=== PATIENT | male | born 1975 | race Caucasian/White ===

== ENCOUNTER 2021-04-05 18:42 | Inpatient (IN) | payer MEDICAID, SELFPAY ==
[~2021-04-05] VITALS: Ht 160 cm; Wt 110.7 kg
[2021-04-05 20:08] VITALS: BP 135/68
--- NOTE | 2021-04-05 20:14 | NUR ---
PT IS IN LOBBY.
--- NOTE | 2021-04-05 20:15 | NUR ---
PT STATES HE WILL BE IN HIS CAR.
[2021-04-05] MEDS ORDERED: ONDANSETRON 4 MG/2 ML VIAL IVP ONE (20:50)
[2021-04-05] MEDS ORDERED: NACL 0.9% 1,000 ML IV ONE (20:50)
[2021-04-05] MEDS ORDERED: MORPHINE SULFATE 4 MG/ML SYR IVP ONE ×2 (20:50→22:25)
--- NOTE | 2021-04-05 21:00 | NUR ---
RECEIVED IN BED 5 WITH C/O 12/16 ABD PAIN X YESTERDAY. REPORTS VOMITING. PT STATES HE TOOK TYLENOL AND ADVIL YESTERDAY WITH RELIEF AND THEN CAME BACK. REPORTS DARK STOOL. DENIES HX, RX AND ALLERGIES
--- NOTE | 2021-04-05 21:10 | NUR ---
IV ESTABLISHED. MEDICATED FOR PAIN, FLUID BOLUS BEGUN. PT REQUESTS WATER, NO WATER GIVEN AT THIS TIME
[2021-04-05 21:23] LABS: LYMPHOCYTES # (AUTO) 0.5 K/uL (2.0-11.5)
[2021-04-05 21:28] LABS: BASOPHILS % (AUTO) 0.1 % (0.0-2.0); HEMATOCRIT 48.2 % (36-52); HEMOGLOBIN 16.3 g/dL (12.0-18.0); MEAN CORPUSCULAR HEMOGLOBIN 32 pg (27-31); MEAN CORPUSCULAR HGB CONC 34 g/dL (33-37); MEAN CORPUSCULAR VOLUME 93.4 fL (80-94); MONOCYTES # (AUTO) 0.9 K/uL (0.8-1.0); MONOCYTES % (AUTO) 5.1 % (1.7-9.3); NEUTROPHILS # (AUTO) 16.5 K/uL (1.8-7.7); NEUTROPHILS % (AUTO) 91.8 % (42.2-75.2); PLATELET COUNT (AUTO) 240 K/uL (140-450); RED BLOOD CELL COUNT(AUTO) 5.16 MIL/uL (4.20-6.10); RED CELL DISTRIBUTION WIDTH 13.9 % (11.6-13.7)
[2021-04-05 21:47] LABS: ALBUMIN 4.1 g/dL (3.4-5.0); ANION GAP 16.6 (8-16); CARBON DIOXIDE 28.5 mmol/L (21-32); CREATININE 1.4 mg/dL (0.6-1.3); POTASSIUM 4.1 mmol/L (3.5-5.1); TOTAL BILIRUBIN 3.3 mg/dL (0.0-1.0)
[2021-04-05] MEDS ORDERED: MORPHINE SULFATE 4 MG/ML SYR ONE (22:26)
--- NOTE | 2021-04-05 22:30 | NUR ---
TO CT VIA [facility]
[2021-04-05] MEDS ORDERED: PIPERACILLIN/TAZOBACTAM 4.5 GM in DEXTROSE 5% 100 ML IV ONE (22:40)
[2021-04-05] MEDS ORDERED: PIPERACILLIN/TAZOBACTAM 4.5 GM VIAL IV ONE (22:45)
--- NOTE | 2021-04-05 22:45 | NUR ---
RETURNED FROM CT.
[2021-04-05 23:33] LABS: APPEARANCE,URINE CLEAR (CLEAR); BILIRUBIN,URINE 2+ (NEGATIVE); BLOOD, URINE NEGATIVE (NEGATIVE); COLOR,URINE AMBER (YELLOW); LEUKOCYTE ESTERASE ,URINE NEGATIVE (NEGATIVE); NITRITE, URINE NEGATIVE (NEGATIVE); UGLUCOSE NEGATIVE (NEGATIVE)
[2021-04-05 23:58] LABS: HYALINE CASTS, URINE 0-2 /LPF (None Seen); RBC,URINE 0-5 /HPF (0-5); WBC,URINE 0-5 /HPF (0-5)
[2021-04-06] MEDS ORDERED: MORPHINE SULFATE 4 MG/ML SYR IVP ONE ×3 (00:10→03:25)
--- NOTE | 2021-04-06 00:15 | NUR ---
C/O PAIN RETURNING, MEDICATED ORDERED. UA OBTAINED AND SENT TO LAB
[2021-04-06] MEDS ORDERED: NACL 0.9% 1,000 ML IV ONE ×3 (00:45→03:20)
--- NOTE | 2021-04-06 01:00 | NUR ---
RESTING QUIETLY. RESPIRATIONS ARE REGULAR AND UNLABORED.
--- NOTE | 2021-04-06 01:55 | NUR ---
AWAKE. C/O PAIN MEDICATED ORDERED
--- NOTE | 2021-04-06 02:58 | NUR ---
AWAKE, AMBULATED TO BR. C/O 12/16 PAIN. "I WANT SOMETHING TO MAKE ME BURP"
[2021-04-06] MEDS ORDERED: diphenhydrAMINE 50 MG/ML VIAL IVP ONE (03:25)
[2021-04-06] MEDS ORDERED: HYDROmorphone PFS 2 MG/ML SYR IVP ONE (06:45)
--- NOTE | 2021-04-06 07:30 | NUR ---
REPORT RECEIVED FROM KARLIE SAHNI FOR CONTINUITY OF PATIENT CARE.
[2021-04-06] MEDS ORDERED: ONDANSETRON 4 MG/2 ML VIAL IVP PRN (08:05)
[2021-04-06] MEDS ORDERED: POTASSIUM CHLORIDE 10 MEQ TABER PO PRN (08:05)
[2021-04-06] MEDS ORDERED: NACL 0.9% 1,000 ML IV SCH (08:05)
[2021-04-06] MEDS ORDERED: ACETAMINOPHEN 325 MG TAB PO PRN (08:05)
[2021-04-06] MEDS ORDERED: MAG SULF 2000 MG/WATER PREMIX 50 ML IV PRN (08:05)
[2021-04-06] MEDS ORDERED: KCL 20 MEQ/WATER INJ PREMIX 200 ML IV PRN (08:05)
[2021-04-06] MEDS ORDERED: MAGNESIUM OXIDE 400 MG TAB PO PRN (08:05)
--- NOTE | 2021-04-06 08:25 | NUR ---
RITESH LAB SPECIMEN COLLECTED AND TAKEN TO LAB.
--- NOTE | 2021-04-06 08:30 | NUR ---
PATIENT REQUESTING WATER, REVIEWED NPO STATUS WITH PATIENT. WATER NOT GIVEN AT THIS TIME
[2021-04-06] MEDS: DOCUSATE SODIUM 100 MG GELCAP PO SCH (09:00)
--- NOTE | 2021-04-06 09:40 | NUR ---
ULTRASOUND AT PATIENT BEDSIDE
--- NOTE | 2021-04-06 11:32 | NUR ---
PATIENT AMBULATED TO RESTROOM WITH STEADY GAIT
--- NOTE | 2021-04-06 11:35 | NUR ---
PATIENT AMBULATED BACK TO ROOM, RECONNECTED TO BEDSIDE MONITOR
[2021-04-06] MEDS ORDERED: HYDROmorphone 1 MG/ML AMP IVP PRN (13:10)
[2021-04-06] MEDS ORDERED: PIPERACILLIN/TAZOBACTAM 3.375 GM VIAL IV ONE ×2 (13:23→18:10)
[2021-04-06 13:26] LABS: BASOPHILS % (AUTO) 0.2 % (0.0-2.0); HEMATOCRIT 45.4 % (36-52); HEMOGLOBIN 15.2 g/dL (12.0-18.0); LYMPHOCYTES # (AUTO) 0.5 K/uL (2.0-11.5); LYMPHOCYTES % (AUTO) 3.7 % (20.5-51.1); MEAN CORPUSCULAR HEMOGLOBIN 32 pg (27-31); MEAN CORPUSCULAR HGB CONC 33 g/dL (33-37); MEAN CORPUSCULAR VOLUME 95.3 fL (80-94); MONOCYTES # (AUTO) 0.7 K/uL (0.8-1.0); NEUTROPHILS # (AUTO) 12.6 K/uL (1.8-7.7); NEUTROPHILS % (AUTO) 91.1 % (42.2-75.2); PLATELET COUNT (AUTO) 223 K/uL (140-450); RED BLOOD CELL COUNT(AUTO) 4.77 MIL/uL (4.20-6.10); RED CELL DISTRIBUTION WIDTH 14.6 % (11.6-13.7); WHITE BLOOD COUNT (AUTO) 13.8 K/uL (4.8-10.8)
[2021-04-06] MEDS: PIPERACILLIN/TAZOBACTAM 3.375 GM in DEXTROSE 5% 50 ML IV SCH ×2 (13:35→19:00)
--- NOTE | 2021-04-06 13:55 | NUR ---
DR GUZMÁN EVALUATING PATIENT AT BEDSIDE
--- NOTE | 2021-04-06 14:05 | NUR ---
NUCLEAR MED AT PATIENT BEDSIDE
--- NOTE | 2021-04-06 15:37 | NUR ---
PATIENT COMPLETED HALF OF VASC FLOW PROCEDURE. PAIN LEVEL REASSESSED, MEDICATED PER ORDERS
--- NOTE | 2021-04-06 18:00 | NUR ---
PATIENT REQUESTED WATER, REVIEWED CLEAR LIQUID DIET. PROVIDED WATER AT BEDSIDE.
[2021-04-06] MEDS: MORPHINE SULFATE 4 MG/ML SYR IVP PRN (19:00)
--- NOTE | 2021-04-06 19:00 | NUR ---
PATIENT REPORTS INCREASE IN PAIN, REVIEWED MEDICATION ORDERS AND MEDICATED PER PROTOCOL.
--- NOTE | 2021-04-06 19:28 | NUR ---
Pt report given to KARLIE SAHNI. Transfer of care at this time.
--- NOTE | 2021-04-06 20:00 | NUR ---
PT HAD BEEN PLACED IN GOWN BUT REMOVED AND PUT CLOTHES BACK ON. REFUSED TO WEAR GOWN
--- NOTE | 2021-04-06 20:05 | NUR ---
REPORT CALLED TO KARLIE SMALL
[2021-04-06 20:10] VITALS: BP 145/85
--- NOTE | 2021-04-06 20:10 | NUR ---
RECEIVED PT FROM ER/ MONSE , AMBULATES TO PAIN , BEARBLE PAIN ABDL . PAIN HE SAID - JUST GOT PAIN MED. PRIOR TO FLOOR , FALL RISK - CALL LIGHT WITHIN REACH - REMINDS PT TO HIT THE CALL LIGHT IF HE NEEDED TO GO TO REST ROOM . IV SITE INTACT AND PATENT . ADMISSION ASSESSMENT - DONE , ON CLEAR LIQ. DIET OREDERED . WILL CONT. TO MONITOR . Addendum: 04/07/21 at 0306 by Zohra Johnson RN ANGELINA -RICHARD
--- NOTE | 2021-04-06 20:15 | NUR ---
TO 112B VIA GURNEY, ATTACHED TO GEOPHYSICAL COMPUTER ACCOMPANIED BY RN AND ERT
--- NOTE | 2021-04-06 22:34 | NUR ---
PER PHARMACIST JAYNE PIGGYBACK IS COMPATIBLE FOR PRIME IVF LR .
[2021-04-06] MEDS: LACTATED RINGERS 1,000 ML IV SCH ×2 (22:46→23:00)
[2021-04-07] VITALS: BP 142/88
--- NOTE | 2021-04-07 00:17 | NUR ---
C/O PAIN - BP 142/89 - WILL GIVE PAIN MED .
[2021-04-07] MEDS: MORPHINE SULFATE 4 MG/ML SYR IVP PRN (00:18)
[2021-04-07] MEDS ORDERED: PIPERACILLIN/TAZOBACTAM 3.375 GM VIAL IV ONE ×2 (01:14→06:46)
[2021-04-07] MEDS: PIPERACILLIN/TAZOBACTAM 3.375 GM in DEXTROSE 5% 50 ML IV SCH ×5 (01:20→23:57)
[2021-04-07 04:00] VITALS: BP 142/90
--- NOTE | 2021-04-07 04:00 | NUR ---
ROUNDS , PER PT HE HAS SMALL FREQ URINATION . - WILL CONT. TO MONITOR .
--- NOTE | 2021-04-07 04:30 | NUR ---
RE ASSESS THE URINATION OF THE PT - PER PT HE HAS URGE -WAIT TILL HE VOIDED BEFORE I REFER HIM TO THE MD . WILL RE ASSESS . REMINDS PT TO VOID TO URINAL .
--- NOTE | 2021-04-07 05:00 | NUR ---
ROUNDS , PT IS IN THE REST REST - ASKING TO HIM IF HE IS OH - PT REPLIES I'M OK . WILL CONT. TO MONITOR .
--- NOTE | 2021-04-07 06:30 | NUR ---
FOLLOW UP PT URINATION HE SAID HE URINATED FREELY . MARKEL Beck
[2021-04-07 06:53] LABS: HEMATOCRIT 41.3 % (36-52); HEMOGLOBIN 13.8 g/dL (12.0-18.0); MEAN CORPUSCULAR HEMOGLOBIN 32 pg (27-31); MEAN CORPUSCULAR HGB CONC 33 g/dL (33-37); MEAN CORPUSCULAR VOLUME 96.2 fL (80-94); PLATELET COUNT (AUTO) 178 K/uL (140-450); RED CELL DISTRIBUTION WIDTH 14.4 % (11.6-13.7); WHITE BLOOD COUNT (AUTO) 17.6 K/uL (4.8-10.8)
[2021-04-07 07:27] LABS: BASOPHILS % (MANUAL) 0 % (0-2); EOSINOPHILS % (MANUAL) 0 % (0-4); LYMPHOCYTES % (MANUAL) 10 % (20-46); MONOCYTES % (MANUAL) 5 % (5-12)
--- NOTE | 2021-04-07 07:27 | NUR ---
PATIENT HAS BEEN SCREENED AND CATEGORIZED MODERATE NUTRITION RISK. PATIENT WILL BE SEEN WITHIN 3-5 DAYS OF ADMISSION. 04/09/21-04/11/21 SHERMAN LLOYD MS, RDN
--- NOTE | 2021-04-07 07:27 | NUR ---
ENDORSED - PT -STABLE .
--- NOTE | 2021-04-07 07:27 | NUR ---
PT 'S BRO CONTACT # [phone] Addendum: 04/07/21 at 0837 by Zohra Johnson RN MARBELLA COLLINS
[2021-04-07 07:28] LABS: ALBUMIN 2.8 g/dL (3.4-5.0); BILIRUBIN,DIRECT 1.3 mg/dL (0.0-0.3)
[2021-04-07 07:29] LABS: TOTAL BILIRUBIN 4.6 mg/dL (0.0-1.0)
--- NOTE | 2021-04-07 07:30 | NUR ---
RECEIVED PT AAOX4. NO SOB NOTED. NO C/O PAIN AT THIS TIME. IV TO LAC PULLED OUT ACCIDENTALLY BY PT. WILL RESTART A NEW LINE SOON. CHEST DIMINISHED AIR ENTRY TO THE BASES. ABDOMEN SOFT, LARGE, BOWEL SOUNDS PRESENT. PT ON CLEAR LIQUIDS. NO EDEMA NOTED. INSTRUCTED PT TO CALL FOR ASSISTANCE, CALL LIGHT WITHIN REACH, VERBALIZED UNDERSTANDING.
[2021-04-07 07:50] LABS: ALBUMIN 2.8 g/dL (3.4-5.0); ANION GAP 20.5 (8-16); CARBON DIOXIDE 19.5 mmol/L (21-32); MAGNESIUM 1.8 mg/dL (1.8-2.4); TOTAL BILIRUBIN 4.6 mg/dL (0.0-1.0)
[2021-04-07 07:54] LABS: CREATININE 5.1 mg/dL (0.6-1.3)
[2021-04-07] MEDS ORDERED: INSULIN REGULAR, HUMAN 100 UNIT/ML VIAL IVP SCH (08:10)
[2021-04-07] MEDS ORDERED: SODIUM ZIRCONIUM CYCLOSILICATE 10 GM POWD.PACK PO SCH (08:10)
[2021-04-07 08:45] VITALS: BP 162/99
[2021-04-07] MEDS: SENNA 8.6 MG TAB PO SCH ×2 (09:00→21:00)
[2021-04-07] MEDS: DOCUSATE SODIUM 100 MG GELCAP PO SCH (09:00)
[2021-04-07] MEDS: LACTATED RINGERS 1,000 ML IV SCH (09:05)
[2021-04-07] MEDS: HYDROmorphone 1 MG/ML AMP IVP PRN ×3 (09:28→22:20)
--- NOTE | 2021-04-07 11:00 | NUR ---
URINE SPECIMEN COLLECTED AND SENT TO LAB FOR UDS ORDERED.
--- NOTE | 2021-04-07 11:33 | NUR ---
(04/07/21) RD INITIAL ASSESSMENT COMPLETED PLEASE REFER TO NUTRITION ASSESSMENT UNDER CARE ACTIVITY FOR ESTIMATED NUTRITIONAL NEEDS. RD RECOMMENDATIONS: 1. CONTINUE CLEAR LIQUID DIET MEDICALLY APPROPRIATE. 2. IF/WHEN MEDICALLY APPROPRIATE, CONSIDER ADVANCING TO FULL LIQUID DIET AND THEN TO CARDIAC DIET TOLERATED. 3. CONSULT RDN PRN. 4. RD WILL F/U 3-5 DAYS; MODERATE RISK. SHERMAN LLOYD MS, RDN
[2021-04-07 12:00] VITALS: BP 140/99
[2021-04-07 12:45] LABS: BARBITURATE, URINE NEGATIVE ng/ml (NEG <=200); BENZODIAZEPINE, URINE NEGATIVE ng/mL (NEG <=200); CANNABINOID, URINE NEGATIVE ng/mL (NEG <=50); COCAINE, URINE POSITIVE ng/mL (NEG <=300); PHENCYCLIDINE SCREEN,URINE NEGATIVE ng/mL (NEG <=25)
[2021-04-07 12:46] LABS: OPIATE, URINE POSITIVE ng/mL (NEG <=2000)
[2021-04-07] MEDS: NACL 0.9% 1,000 ML IV SCH ×2 (13:04→19:01)
[2021-04-07 14:40] LABS: ANION GAP 19.5 (8-16); CARBON DIOXIDE 20.4 mmol/L (21-32); POTASSIUM 5.9 mmol/L (3.5-5.1)
[2021-04-07] MEDS ORDERED: DEXTROSE 50% 50 ML SYR IVP PRN (14:50)
[2021-04-07] MEDS ORDERED: INSULIN LISPRO 100 UNITS/ML VIAL SUBQ SCH ×2 (15:05→21:55)
[2021-04-07] MEDS ORDERED: INSULIN LANTUS 100 UNITS/ML 10 ML VIAL SUBQ SCH ×2 (15:05→21:55)
[2021-04-07 16:00] VITALS: BP 153/94
[2021-04-07 18:31] LABS: ANION GAP 21.4 (8-16); CARBON DIOXIDE 19.9 mmol/L (21-32); POTASSIUM 5.3 mmol/L (3.5-5.1)
[2021-04-07 18:36] LABS: CREATININE 6.5 mg/dL (0.6-1.3)
[2021-04-07] MEDS ORDERED: INSULIN LISPRO 100 UNITS/ML VIAL SUBQ ONE (18:45)
[2021-04-07] MEDS ORDERED: FUROSEMIDE 20 MG/2 ML VIAL IVP ONE (18:45)
--- NOTE | 2021-04-07 18:48 | NUR ---
REPORTED TO DR. TAYLOR REGARDING PT'S LATEST BMP RESULTS (CRITICAL), REPORTED PT'S URINE LOW URINE OUT PUT FOR 12 HOURS (300 MLS, DARK MAHAD URINE), BLADDER SCAN DONE, POST VOID RESIDUAL OF ABOVE 118 MLS. NEW ORDERS GIVEN. ANOTHER BMP ORDERED FOR [address] TAYLOR TO REPORT THE BMP RESULTS AT 2100 HRS TO NEPHROLOGY (DR. MELANY AU AND WILL GO FROM THERE.
--- NOTE | 2021-04-07 18:55 | NUR ---
ANOTHER URINE OUT PUT OF 250 DARK MAHAD URINE NOTED.
[2021-04-07] MEDS: BLOOD GLUCOSE MONITORING 1 DEV DEV FS SCH ×2 (18:58→21:07)
--- NOTE | 2021-04-07 19:30 | NUR ---
PT AWAKE, NO SOB NOTED. NO C/O PAIN AT THIS TIME. ENDORSED TO TIME SIGNAL WIRER NURSE FOR CONTINUITY OF CARE.
--- NOTE | 2021-04-07 19:40 | NUR ---
RECEIVED REPORT AT BEDSIDE.PT IS AWAKE,ALERT AND ORIENTED.FAMILY AT BEDSIDE.RESP.UNLABORED.IVF INFUSING WELL.HR IS ST.CALL LIGHT IN REACH.WILL CONTINUE MONITORING.VS STABLE.
[2021-04-07 20:00] VITALS: BP 167/93
[2021-04-07 21:46] LABS: ANION GAP 20.2 (8-16); CARBON DIOXIDE 20.2 mmol/L (21-32); POTASSIUM 4.4 mmol/L (3.5-5.1)
[2021-04-07 22:03] LABS: CREATININE 6.8 mg/dL (0.6-1.3)
[2021-04-08] VITALS: BP 155/90
--- NOTE | 2021-04-08 | NUR ---
AT 2100.PS=908.CALLED COVERED HIM W/10UNITS LANTUS AND 10 UNITS HUMALOG PER MD ORDER X1 TIME.ALSO RESULTS OF BMP :DZYOUAI=982,BUN=87,CREATININE=6.8 AND K=4.[address]MINA AU,NO NEW ORDER GIVEN.HR IS ST.NO C/O PAIN NOW.ASKED FOR FAN.FAN IS IN HIS ROOM.WILL CONT.MONITORING.
[2021-04-08] MEDS: HYDROmorphone 1 MG/ML AMP IVP PRN ×6 (01:52→22:06)
--- NOTE | 2021-04-08 02:44 | NUR ---
HR=42.CHECKED ON PT.SLEEPING W/O S/S OF ANY DISTRESS.VS STABLE.KY=60,RR=20,MG=278/80,T=98.8
[2021-04-08 04:00] VITALS: BP 160/90
[2021-04-08] MEDS: NACL 0.9% 1,000 ML IV SCH ×3 (05:43→18:44)
[2021-04-08] MEDS: PIPERACILLIN/TAZOBACTAM 3.375 GM in DEXTROSE 5% 50 ML IV SCH ×2 (05:43→12:04)
[2021-04-08] MEDS: BLOOD GLUCOSE MONITORING 1 DEV DEV FS SCH ×4 (07:04→21:04)
[2021-04-08] MEDS: INSULIN LISPRO SLIDING SCALE 100 UNITS/ML VIAL SUBQ PRN ×5 (07:07→20:59)
[2021-04-08 07:30] LABS: ALBUMIN 2.4 g/dL (3.4-5.0); ANION GAP 19.6 (8-16); CARBON DIOXIDE 21.6 mmol/L (21-32); MAGNESIUM 2.1 mg/dL (1.8-2.4); POTASSIUM 5.2 mmol/L (3.5-5.1); TOTAL BILIRUBIN 5.9 mg/dL (0.0-1.0)
[2021-04-08 07:34] LABS: BASOPHILS % (AUTO) 0.1 % (0.0-2.0); HEMATOCRIT 31.8 % (36-52); HEMOGLOBIN 10.9 g/dL (12.0-18.0); LYMPHOCYTES # (AUTO) 0.9 K/uL (2.0-11.5); LYMPHOCYTES % (AUTO) 5.6 % (20.5-51.1); MEAN CORPUSCULAR HEMOGLOBIN 33 pg (27-31); MEAN CORPUSCULAR HGB CONC 34 g/dL (33-37); MEAN CORPUSCULAR VOLUME 94.6 fL (80-94); MONOCYTES # (AUTO) 1.3 K/uL (0.8-1.0); MONOCYTES % (AUTO) 7.8 % (1.7-9.3); NEUTROPHILS # (AUTO) 14.7 K/uL (1.8-7.7); NEUTROPHILS % (AUTO) 86.5 % (42.2-75.2); PLATELET COUNT (AUTO) 151 K/uL (140-450); RED BLOOD CELL COUNT(AUTO) 3.36 MIL/uL (4.20-6.10); RED CELL DISTRIBUTION WIDTH 14.1 % (11.6-13.7)
[2021-04-08 07:37] LABS: CREATININE 7.4 mg/dL (0.6-1.3)
--- NOTE | 2021-04-08 07:54 | NUR ---
SLEPT WELL LAST NIGHT.IVF IS IN PROGRESS.REPORT GIVEN TO JARRED ZIEGLER.
[2021-04-08 08:00] VITALS: BP 153/98
--- NOTE | 2021-04-08 08:00 | NUR ---
RECEIVED REPORT FROM PAVING STONE INSTALLER FOR CONTINUITY OF CARE. PATIENT ALERT AWAKE ORIENTED X4, NOT IN ANY DISTRESS NOTED. WITH IVF ON GOING ON THE RIGHT AC GAUGE 20, NO SIGN OF INFILTRATION. ON MONITOR SHOWS SR /ST. LAB RESULTS CALLED TO DR. AU FOR CRITICAL RESULT. NO NEW ORDER MADE. NEEDS ATTENDED. WILL CONTINUE TO MONITOR.
[2021-04-08] MEDS: SENNA 8.6 MG TAB PO SCH ×2 (08:40→21:00)
[2021-04-08] MEDS: DOCUSATE SODIUM 100 MG GELCAP PO SCH (08:41)
[2021-04-08 12:00] VITALS: BP 153/89
--- NOTE | 2021-04-08 12:20 | NUR ---
SEEN BY AND PLAN TO DO ERCP, EXPALINED TO THE PATIENT AND HE SAID HE WILL TALK TO THE FIRST. KEEP NPO FOR NOW. CONSENT PRINTED. WILL CONTINUE TO MONITOR.
--- NOTE | 2021-04-08 13:20 | NUR ---
PATIENT OFF FLOOE, WENT FOR ERCP. WILL CONTINUE TO MONITOR.
[2021-04-08] MEDS ORDERED: MIDAZOLAM 2 MG/2 ML VIAL ONE (13:39)
[2021-04-08] MEDS ORDERED: KETAMINE 500 MG/5 ML VIAL ONE (13:57)
[2021-04-08] MEDS ORDERED: LABETALOL 100 MG/20 ML VIAL ONE (14:21)
[2021-04-08] MEDS ORDERED: PROPOFOL 200 MG/20 ML VIAL IV ONE ×2 (14:21)
[2021-04-08] MEDS ORDERED: SODIUM ZIRCONIUM CYCLOSILICATE 10 GM POWD.PACK PO SCH (15:30)
--- NOTE | 2021-04-08 15:40 | NUR ---
PATIENT BACK FROM ERCP, NOT IN DISTRESS NOTED.
[2021-04-08 16:00] VITALS: BP 160/98
[2021-04-08 16:20] LABS: ANION GAP 19.3 (8-16); CARBON DIOXIDE 21.6 mmol/L (21-32); POTASSIUM 4.9 mmol/L (3.5-5.1)
[2021-04-08 16:28] LABS: CREATININE 7.8 mg/dL (0.6-1.3)
--- NOTE | 2021-04-08 17:00 | NUR ---
SEEN BY DR. KHADRA VEGAS, WITH ORDERS MADE.
[2021-04-08] MEDS ORDERED: CALCIUM GLUCONATE 10% 1,000 MG in NACL 0.9% 50 ML IV SCH (18:00)
[2021-04-08] MEDS: LABETALOL 100 MG/20 ML VIAL IV SCH ×2 (18:59→23:52)
--- NOTE | 2021-04-08 19:20 | NUR ---
REPORT GIVEN TO KARLIE SANCHEZ FOR CONTINUITY OF CARE. IN STABLE CONDITION.
--- NOTE | 2021-04-08 19:30 | NUR ---
RECEIVED PT SLEEPING, EASILY AROUSABLE, AAOX4, ABLE TO MAKE NEED KNOWN, DENIES ANY PAIN, NO SIGNS OF SOB, CALCIUM GLUCONATE IVPB INFUSING WELL, PLAN OF CARE DISCUSSED, MAINTAINED ON NPO EXCEPT MEDS, CALL LIGHT WITHIN REACH.
[2021-04-08 20:00] VITALS: BP 164/87
[2021-04-08] MEDS: metroNIDAZOLE 500 MG/NS PREMIX 100 ML IV SCH (20:53)
[2021-04-08] MEDS: INSULIN LANTUS 100 UNITS/ML 10 ML VIAL SUBQ SCH (20:58)
--- NOTE | 2021-04-08 21:10 | NUR ---
BLOOD SUGAR CHECKED WITH 200 RESULT, DUE MEDS ADMINISTERED, PT AMBULATED TO BR WITH STEADY GAIT, BM WITH LOOSE STOOL, VOIDED FREELY USING URINAL WITH 300ML STRAW COLORED URINE, ALL NEEDS ATTENDED.
[2021-04-09] VITALS: BP 158/91
[2021-04-09] MEDS: NACL 0.9% 1,000 ML IV SCH ×3 (01:15→21:15)
[2021-04-09] MEDS: HYDROmorphone 1 MG/ML AMP IVP PRN ×7 (02:32→23:40)
[2021-04-09 04:00] VITALS: BP 139/93
[2021-04-09] MEDS: metroNIDAZOLE 500 MG/NS PREMIX 100 ML IV SCH ×3 (04:29→20:42)
[2021-04-09] MEDS: LABETALOL 100 MG/20 ML VIAL IV SCH ×3 (05:56→18:57)
[2021-04-09] MEDS: INSULIN LISPRO SLIDING SCALE 100 UNITS/ML VIAL SUBQ PRN ×4 (06:23→20:47)
[2021-04-09] MEDS: BLOOD GLUCOSE MONITORING 1 DEV DEV FS SCH ×4 (06:55→20:47)
--- NOTE | 2021-04-09 07:20 | NUR ---
RECEIVED REPORT FROM PM SHIFT KARLIE SANCHEZ FOR CONTINUITY OF CARE. PT. STABLE ON ROOM AIR. BREATHINGS EVEN AND UNLABORED. NO RESP. DISTRESS NOTED. IVF RUNNING ORDERED. ALL SAFETY MEASURES IN PLACE. CALL LIGHT WITHIN REACH. WILL CONTINUE TO MONITOR THE PT.
--- NOTE | 2021-04-09 07:20 | NUR ---
PT AWAKE, NO SIGNS OF DISTRESS, REPORT GIVEN TO KARLIE GORDON FOR CONTINUITY OF CARE.
[2021-04-09 07:35] LABS: BASOPHILS % (AUTO) 0.1 % (0.0-2.0); EOSINOPHILS % (AUTO) 0.1 % (0.0-4.0); HEMATOCRIT 27.8 % (36-52); HEMOGLOBIN 9.5 g/dL (12.0-18.0); LYMPHOCYTES # (AUTO) 0.7 K/uL (2.0-11.5); LYMPHOCYTES % (AUTO) 4.3 % (20.5-51.1); MEAN CORPUSCULAR HEMOGLOBIN 32 pg (27-31); MEAN CORPUSCULAR HGB CONC 34 g/dL (33-37); MEAN CORPUSCULAR VOLUME 94.4 fL (80-94); MONOCYTES % (AUTO) 6.2 % (1.7-9.3); NEUTROPHILS # (AUTO) 14.6 K/uL (1.8-7.7); NEUTROPHILS % (AUTO) 89.3 % (42.2-75.2); PLATELET COUNT (AUTO) 165 K/uL (140-450); RED BLOOD CELL COUNT(AUTO) 2.95 MIL/uL (4.20-6.10); WHITE BLOOD COUNT (AUTO) 16.4 K/uL (4.8-10.8)
[2021-04-09 08:00] VITALS: BP 164/87
[2021-04-09 08:06] LABS: CARBON DIOXIDE 18.6 mmol/L (21-32); MAGNESIUM 2.3 mg/dL (1.8-2.4); POTASSIUM 4.6 mmol/L (3.5-5.1); TOTAL BILIRUBIN 2.5 mg/dL (0.0-1.0)
[2021-04-09 08:34] LABS: CREATININE 8.7 mg/dL (0.6-1.3)
--- NOTE | 2021-04-09 08:34 | NUR ---
RECEIVED CALL FROM LAB FOR THIS PT. HAS CRITICAL LAB RESULT BUN 115,AUTO AIR CONDITIONING INSTALLER.LEVEL 8.7.NOTIFIED MD PCP AND DATA CONTROL ASSISTANT.WILL FOLLOW UP WITH THE ORDERES.
[2021-04-09] MEDS: DOCUSATE SODIUM 100 MG GELCAP PO SCH (09:00)
[2021-04-09] MEDS: SENNA 8.6 MG TAB PO SCH ×2 (09:00→20:42)
--- NOTE | 2021-04-09 09:09 | NUR ---
PT. C/O ABDOMINAL PAIN 11/16. MEDICATED WITH DILUDID PAIN MED. WILL CONTINUE TO MONITOR THE PT.
--- NOTE | 2021-04-09 09:40 | NUR ---
REASSESSED FOR EFFECTIVENESS OF PAIN MED. PT. DENIES PAIN AT THIS TIME. ALERT,AWAKE, STABLE ON ROOM AIR. SAFETY MEASURES IN PLACE. WILL CONTINUE TO MONITOR THE PT.
[2021-04-09 12:00] VITALS: BP 153/94
--- NOTE | 2021-04-09 12:38 | NUR ---
ANSWERED CALL LIGHT. PT. C/O PAIN IN ABDOMEN. 11/16. MEDICATED WITH PAIN MED DILAUDID PRN ORDER.WILL CONTINUE TO MONITOR THE PT.
--- NOTE | 2021-04-09 13:30 | NUR ---
PT. RESTING IN THE BED. NO C/O PAIN AT THIS TIME. NO ANY ACUTE DISTRESS NOTED. SAFETY MEASURES IN PLACE. WILL CONTINUE TO MONITOR THE PT.
[2021-04-09] MEDS ORDERED: chlorproMAZINE 25 MG TAB PO PRN (15:35)
[2021-04-09 16:00] VITALS: BP 158/98
--- NOTE | 2021-04-09 17:08 | NUR ---
ADMINISTERED PAIN MEDICATION DILAUDID FOR C/O PAIN ABDOMEN. 11/16. PT. RESTING IN THE BED WIOTH NO SIGNS OF DISTRESS NOTED. SAFETY MEASURES IN PLACE. CALL LIGHT WITHIN REACH. FAMILY AT BEDSIDE. WILL CONTINUER VIJAY MONITOR THE PT.
--- NOTE | 2021-04-09 18:32 | NUR ---
PT. COMFORTABLY SLEEPING IN THE BED . NO S/S OF ACUTE DISTRESS NOTED. NO S/S OF PAIN NOTED AT THIS TIME. ALL SAFETY MEASURES IN PLACE. WILL CONTINUE TO MONITOR THE PT.
--- NOTE | 2021-04-09 19:24 | NUR ---
REPORT GIVEN TO PM SHIFT RN FOR CONTINUITY OF CARE. PT. STABLE. COMFORTABLY RESTING IN THE BED WITH NO DISTRESS.
--- NOTE | 2021-04-09 19:25 | NUR ---
RECEIVED REPORT FROM AM SHIFT NURSE FOR CONTINUITY OF CARE.PT IS AWAKE,ALERT AND ORIENTED.FAMILY AT BEDSIDE.BREATHING UNLABORED.AFEBRILE,IVF INFUSING WELL.CALL LIGHT IN REACH.WILL CONTINUE MONITORING.
[2021-04-09 20:00] VITALS: BP 121/72
--- NOTE | 2021-04-09 20:40 | NUR ---
PT COMPLAINED OF ABDOMINAL PAIN 11/16. PRN PAIN MEDICATION GIVEN.WILL CONTINUE TO MONITOR.
[2021-04-09] MEDS: INSULIN LANTUS 100 UNITS/ML 10 ML VIAL SUBQ SCH (20:46)
--- NOTE | 2021-04-09 21:00 | NUR ---
SCHEDULED MEDICATION GIVEN. PT TOLERATED WELL. ALL PRECAUTIONS IN PLACE. WILL CONTINUE TO MONITOR.
--- NOTE | 2021-04-09 23:45 | NUR ---
PT COMPLAINED OF ABDOMINAL PAIN 10/16. PRN PAIN MEDICATION GIVEN.WILL CONTINUE TO MONITOR.
--- NOTE | 2021-04-10 01:30 | NUR ---
PT ASLEEP. VISIBLE CHEST RISE AND FALL NOTED. NO DISTRESS NOTED.CONTINUE TO MONITOR.
[2021-04-10] MEDS: HYDROmorphone 1 MG/ML AMP IVP PRN ×5 (02:40→20:05)
[2021-04-10 04:00] VITALS: BP 153/92
[2021-04-10] MEDS: HYDROcodone/APAP 5/325 MG 1 TAB TAB PO PRN ×3 (04:48→22:37)
[2021-04-10] MEDS: metroNIDAZOLE 500 MG/NS PREMIX 100 ML IV SCH ×3 (04:49→20:52)
--- NOTE | 2021-04-10 04:50 | NUR ---
PT COMPLAINED OF 6/10 ABDOMINAL PAIN. PRN PAIN MED GIVEN. WILL CONTINUE TO MONITOR.
[2021-04-10] MEDS: LABETALOL 100 MG/20 ML VIAL IV SCH ×4 (06:00→18:00)
[2021-04-10] MEDS: NACL 0.9% 1,000 ML IV SCH ×2 (06:40→18:04)
[2021-04-10] MEDS: INSULIN LISPRO SLIDING SCALE 100 UNITS/ML VIAL SUBQ PRN ×3 (06:41→23:46)
[2021-04-10] MEDS: BLOOD GLUCOSE MONITORING 1 DEV DEV FS SCH ×4 (06:41→21:24)
--- NOTE | 2021-04-10 06:57 | NUR ---
PT STABLE. NO ACUTE EVENTS THROUGHOUT THE NIGHT. NO S/SX OF DISTRESS AT THIS TIME. ALL NEEDS MET. CALL LIGHT WITHIN REACH. WILL ENDORSE TO AM SHIFT NURSE.
--- NOTE | 2021-04-10 07:28 | NUR ---
REPORT RECEIVED FROM PM SHIFT RN FOR CONTINUITY OF CARE. PT. RESTING. BREATHING EVEN AND UNLABORED. ALL SAFETY MEASURES IN PLACE.WILL CONTINUE TO MONITOR THE PT.
--- NOTE | 2021-04-10 07:30 | NUR ---
ENDORSED PT TO AM SHIFT NURSE FOR CONTINUITY OF CARE. PT IS STABLE.
[2021-04-10 08:00] VITALS: BP 169/98
[2021-04-10 08:21] LABS: HEMATOCRIT 27.6 % (36-52); HEMOGLOBIN 9.4 g/dL (12.0-18.0); MEAN CORPUSCULAR HEMOGLOBIN 32 pg (27-31); MEAN CORPUSCULAR HGB CONC 34 g/dL (33-37); MEAN CORPUSCULAR VOLUME 94.2 fL (80-94); PLATELET COUNT (AUTO) 202 K/uL (140-450); RED BLOOD CELL COUNT(AUTO) 2.93 MIL/uL (4.20-6.10); RED CELL DISTRIBUTION WIDTH 14.7 % (11.6-13.7); WHITE BLOOD COUNT (AUTO) 17.1 K/uL (4.8-10.8)
[2021-04-10 08:24] LABS: CARBON DIOXIDE 16.6 mmol/L (21-32); MAGNESIUM 2.5 mg/dL (1.8-2.4); POTASSIUM 3.6 mmol/L (3.5-5.1); TOTAL BILIRUBIN 1.5 mg/dL (0.0-1.0)
--- NOTE | 2021-04-10 08:30 | NUR ---
NOTIFIED MD DR. ANDERS RE. PT'S CRITICAL LAB VALUE BUN 124, BILLING TYPIST. 9.0. VIA TEXT. MESSAGE.
--- NOTE | 2021-04-10 08:40 | NUR ---
RECEIVED CALL FROM DR. TOVAR . THAT HE WILL DO BEDSIDE PROCEDURE HD CATHETER PLACEMENT.
[2021-04-10] MEDS: SENNA 8.6 MG TAB PO SCH ×2 (09:00→21:24)
[2021-04-10] MEDS: DOCUSATE SODIUM 100 MG GELCAP PO SCH (09:00)
--- NOTE | 2021-04-10 09:05 | NUR ---
DR. TOVAR IS HERE. HE EXPLAINED VIJAY THE PT. RE. PROCEDURE. PT. AGRRED TO DO PROCEDURE HD CATH PLACEMENT..
--- NOTE | 2021-04-10 09:11 | NUR ---
OBTAINED CONSENT FROM MD AND PT,
--- NOTE | 2021-04-10 09:30 | NUR ---
HD CATHETER PLACEMENT DONE AT BEDSIDE. PERFORMED BY DR. TOVAR. PT. TOLERATED WEL. NO BLEEDING NOTED ATT INSERTION SITE. PT. ALERT,STABLE. NO ACUTE DISTRESS NOTED. SAFETY MEASURES IN PLACED. WILL CONTINUE TO MONITOR THE PT.
--- NOTE | 2021-04-10 11:37 | NUR ---
PT. C/O ABDOMINAL PAIN . 11/16. MEDICATED WITH PAIN MED. PRN ORDER. WILL REASSESS FOR PAIN. PT. ALERT AND ORIENTED. NO DISTRESS OBSERVED. CALL LIGHT WITHIN REACH. WILL CONTINUE TO MONITOR THE PT.
[2021-04-10 12:00] VITALS: BP 154/88
--- NOTE | 2021-04-10 15:31 | NUR ---
PT. C/O OF ABDOMINAL PAIN.09/15. MEDICATED WITH PAIN MED. WILL CONTINUE TO MONITOR THE PT.CURRENTLY PT. HAVING HD
[2021-04-10 16:00] VITALS: BP 154/88
--- NOTE | 2021-04-10 17:03 | NUR ---
PT. C/O PAIN IN ABDOMEN. REQUESTED PAIN PILL. MEDICATED WITH NORCO PAIN MED. WILL CONTINUE TO MONITOR THE PT.
[2021-04-10 17:49] LABS: EOSINOPHILS % (MANUAL) 1 % (0-4); LYMPHOCYTES % (MANUAL) 7 % (20-46); MONOCYTES % (MANUAL) 8 % (5-12)
--- NOTE | 2021-04-10 17:50 | NUR ---
HD FINISHED DILIP. 0ML OUTPUT PER HD NURSE. PT. ALERT AWAKE . STABLE. ON ROOM AIR NO NOTED DISTRESS. SAFETY MEASURES IN PLACE. WILL CONTINUE TO MONITOR THE PT.
--- NOTE | 2021-04-10 19:09 | NUR ---
PT. COMFORTABLY RESTING IN THE BED WITH NO ACUTE DISTRESS NOTED. SAFETY MEASURES IN PLACE. CALL LIGHT WITHIN REACH. PT. STABLE . WILL ENDORSE TO PM SHIFT RN.
--- NOTE | 2021-04-10 19:35 | NUR ---
RECEIVED PATIENT REPORT FROM AM SHIFT NURSE FOR CONTINUITY OF CARE. PATIENT IN BED AWAKE, ALERT AND VERBALLY RESPONSIVE. ABLE TO VERBALIZED NEEDS. FAMILY MEMBER ON BEDSIDE. NOT IN DISTRESS. ALL SAFETY MEASURES IN PLACE. CALL LIGHT WITHIN REACH. WILL CONTINUE WITH CURRENT PLAN OF CARE.
--- NOTE | 2021-04-10 20:08 | NUR ---
PATIENT COMPLAINT OF PAIN. PAIN 11/16. RN EDUARDO ADMINISTERED DILAUDID. TOLERATED WELL. NO ASE NOTED. CALL LIGHT WITHIN REACH. WILL CONTINUE TO MONITOR.
[2021-04-10] MEDS: INSULIN LANTUS 100 UNITS/ML 10 ML VIAL SUBQ SCH (20:46)
--- NOTE | 2021-04-10 21:25 | NUR ---
ADMINISTERED ALL DUE MEDICATIONS PER MD ORDERED. TOLERATED WELL. NO ASE NOTED. ALL SAFETY MEASURES IN PLACE. CALL LIGHT WITHIN REACH. WILL CONTINUE TO MONITOR.
--- NOTE | 2021-04-10 22:40 | NUR ---
ANSWERED PATIENT CALL LIGHT. PATIENT COMPLAINT OF PAIN. ADMINISTERED NORCO. TOLERATED WELL. NO ASE NOTED. CALL LIGHT WITHIN REACH. WILL CONTINUE TO MONITOR.
--- NOTE | 2021-04-10 23:10 | NUR ---
CHECKED ON PATIENT. PATIENT ASLEEP WITH VISIBLE CHEST RISING AND FALLING. NOT IN DISTRESS. NO SOB NOTED. ALL SAFETY MEASURES IN PLACE. CALL LIGHT WITHIN REACH. WILL CONTINUE TO MONITOR.
[2021-04-11] MEDS: HYDROmorphone 1 MG/ML AMP IVP PRN ×4 (01:03→15:41)
--- NOTE | 2021-04-11 01:05 | NUR ---
ANSWERED PATIENT CALL LIGHT. PATIENT COMPLAINT OF PAIN 11/16. RN EDUARDO ADMINISTERED PAIN MEDICATION (DILAUDID) PER MD ORDER. TOLERATED WELL. NO ASE NOTED. PLACED CALL LIGHT WITHIN REACH. WILL CONTINUE TO MONITOR.
[2021-04-11] MEDS: HYDROcodone/APAP 5/325 MG 1 TAB TAB PO PRN ×2 (03:10→20:11)
--- NOTE | 2021-04-11 03:12 | NUR ---
CHECKED ON PATIENT. PATIENT REQUESTING FOR WARM BLANKET AND NEW GOWN. ITEMS PROVIDED. PATIENT ALSO REQUESTED FOR PAIN MEDICATION. PAIN 7/. ADMINISTERED PAIN MEDICATION (NORCO) PER MD ORDER. TOLERATED WELL. NO ASE NOTED. CALL LIGHT WITHIN REACH. WILL CONTINUE TO MONITOR.
[2021-04-11] MEDS: NACL 0.9% 1,000 ML IV SCH ×2 (03:15→14:04)
[2021-04-11 04:00] VITALS: BP 139/67
[2021-04-11] MEDS: metroNIDAZOLE 500 MG/NS PREMIX 100 ML IV SCH ×2 (04:57→14:04)
[2021-04-11] MEDS: LABETALOL 100 MG/20 ML VIAL IV SCH ×4 (06:00→18:00)
[2021-04-11] MEDS: BLOOD GLUCOSE MONITORING 1 DEV DEV FS SCH ×4 (06:48→21:00)
[2021-04-11] MEDS: INSULIN LISPRO SLIDING SCALE 100 UNITS/ML VIAL SUBQ PRN ×2 (06:50→17:09)
--- NOTE | 2021-04-11 07:13 | NUR ---
Patient's Plan of Care was discussed and reviewed with BIAS CUTTING MACHINE OPERATOR: TORSTEN KILGORE
--- NOTE | 2021-04-11 07:25 | NUR ---
ENDORSED PATIENT REPORT TO AM SHIFT NURSE FOR CONTINUITY OF CARE. PATIENT IS STABLE.
--- NOTE | 2021-04-11 07:25 | NUR ---
OPENING NOTES: PATIENT IS RESTING IN BED. AAOX4, ABLE TO MAKE NEEDS KNOWN. NO ADDITIONAL DISTRESS NOTED. EXPLAINED PLAN OF CARE AND PATIENT VERBALIZED UNDERSTANDING. BED IN LOW AND LOCK POSITION. CALL LIGHT WITHIN REACH. ABLE TO AMBULATE INDEPENDENTLY. AT THE BEDSIDE ASSISTING PATIENT'S NEED. RAC 20G INTACT WITH IVF RUNNING. STABLE CONDITION AT THIS TIME. WILL CONT TO MONITOR.
[2021-04-11 07:38] LABS: HEMATOCRIT 28.4 % (36-52); HEMOGLOBIN 9.7 g/dL (12.0-18.0); MEAN CORPUSCULAR HEMOGLOBIN 32 pg (27-31); MEAN CORPUSCULAR HGB CONC 34 g/dL (33-37); MEAN CORPUSCULAR VOLUME 93.9 fL (80-94); PLATELET COUNT (AUTO) 221 K/uL (140-450); RED BLOOD CELL COUNT(AUTO) 3.03 MIL/uL (4.20-6.10); RED CELL DISTRIBUTION WIDTH 14.5 % (11.6-13.7); WHITE BLOOD COUNT (AUTO) 16.1 K/uL (4.8-10.8)
[2021-04-11 08:00] VITALS: BP 164/88
[2021-04-11 08:23] LABS: TOTAL BILIRUBIN 1.4 mg/dL (0.0-1.0)
[2021-04-11] MEDS: DOCUSATE SODIUM 100 MG GELCAP PO SCH (11:12)
[2021-04-11] MEDS: SENNA 8.6 MG TAB PO SCH ×2 (11:12→21:00)
--- NOTE | 2021-04-11 12:58 | NUR ---
04/11/21 RD FOLLOW UP COMPLETED PLEASE REFER TO NUTRITION ASSESSMENT UNDER CARE ACTIVITY FOR ESTIMATED NUTRITIONAL NEEDS. 1. CONTINUE CLEAR LIQUID DIET MEDICALLY APPROPRIATE 2. IF/WHEN MEDICALLY APPROPRIATE, CONSIDER ADVANCING TO FULL LIQUID DIET AND THEN TO RENAL/CCHO 60GM DIET TOLERATED. 3. RD WILL F/U 2-3 DAYS; HIGH RISK. KATHRYN ZARAGOZA RD
[2021-04-11 13:31] LABS: ALBUMIN 2.1 g/dL (3.4-5.0); ANION GAP 20.3 (8-16); CARBON DIOXIDE 18.4 mmol/L (21-32); MAGNESIUM 2.5 mg/dL (1.8-2.4); POTASSIUM 3.7 mmol/L (3.5-5.1)
[2021-04-11 16:00] VITALS: BP 147/86
[2021-04-11 16:19] LABS: LYMPHOCYTES % (MANUAL) 6 % (20-46); MONOCYTES % (MANUAL) 8 % (5-12)
--- NOTE | 2021-04-11 18:00 | NUR ---
HD AT THE BEDSIDE
--- NOTE | 2021-04-11 18:42 | NUR ---
HOLD ROCEPHIN PER HD NURSE. PATIENT IS GETTING HD AT THIS TIME. WILL ENDORSE TO NEXT SHIFT RN TO GIVE AFTER HD.
--- NOTE | 2021-04-11 18:45 | NUR ---
CLOSING NOTES: PATIENT IS RESTING IN BED WITH AT THE BEDSIDE AND HD NURSE. AAOX4, ABLE TO MAKE NEEDS KNOWN. NO ADDITIONAL DISTRESS NOTED. BED IN LOW AND LOCK POSITION. CALL LIGHT WITHIN REACH. HOURLY ROUNDING THROUGHOUT THE SHIFT. PAIN MANAGEMENT IN PLACED. EDUCATE PATIENT ON NPO AFTER MIDNIGHT TONIGHT FOR LAP SYEDA IN AM. PATIENT VERBALIZED UNDERSTANDING. CONSENT FOR SURGERY HAS BEEN SIGNED BY THE PATIENT. STABLE CONDITION AT THIS TIME. WILL CONT TO MONITOR.
[2021-04-11 20:00] VITALS: BP 145/75
[2021-04-11] MEDS: INSULIN LANTUS 100 UNITS/ML 10 ML VIAL SUBQ SCH (21:00)
[2021-04-12] MEDS: HYDROcodone/APAP 5/325 MG 1 TAB TAB PO PRN (00:16)
[2021-04-12] MEDS: NACL 0.9% 1,000 ML IV SCH ×4 (00:54→23:02)
[2021-04-12] MEDS: metroNIDAZOLE 500 MG/NS PREMIX 100 ML IV SCH ×5 (00:55→21:52)
[2021-04-12] MEDS: HYDROmorphone 1 MG/ML AMP IVP PRN ×4 (02:00→22:01)
[2021-04-12 04:24] VITALS: BP 154/81
[2021-04-12] MEDS: LABETALOL 100 MG/20 ML VIAL IV SCH ×5 (05:11→23:23)
[2021-04-12] MEDS: BLOOD GLUCOSE MONITORING 1 DEV DEV FS SCH ×4 (06:05→21:51)
[2021-04-12] MEDS: INSULIN LISPRO SLIDING SCALE 100 UNITS/ML VIAL SUBQ PRN ×4 (06:39→21:58)
--- NOTE | 2021-04-12 07:04 | NUR ---
RECEIVED REPORT FROM STILL OPERATOR NURSE FOR CONTINUITY OF CARE. PT IN BED AT THIS TIME, FAMILY AT BEDSIDE. PT IS IN BED, AWAKE AND ALERT X4. PT ON ROOM AIR, WITH 02 SAT AT 96%. RESPIRATIONS ARE EVEN AND UNLABORED. NO SIGNS OF DISTRESS NOTED. PT IS COMPLAINING OF PAIN AT THIS TIME, STATES PAIN IS 4/10. INFORMED PT THAT NEXT PAIN MEDICATION IS NOT DUE YET. PT VERBALIZED UNDERSTANDING. PT IS CURRENTLY NPO DUE TO SCHEDULED PROCEDURE THIS AFTERNOON. PT HAS R-IJ IN PLACE. PT ALSO HAS R AC 20G IN PLACE. SKIN IS WARM, DRY, AND INTACT. CALL LIGHT WITHIN REACH. ALL SAFETY MEASURES IN PLACE. WILL CONTINUE TO MONITOR.
[2021-04-12 07:26] LABS: BASOPHILS % (AUTO) 0.1 % (0.0-2.0); EOSINOPHILS % (AUTO) 0.2 % (0.0-4.0); HEMATOCRIT 27.9 % (36-52); HEMOGLOBIN 9.5 g/dL (12.0-18.0); LYMPHOCYTES # (AUTO) 1.1 K/uL (2.0-11.5); LYMPHOCYTES % (AUTO) 5.8 % (20.5-51.1); MEAN CORPUSCULAR HEMOGLOBIN 32 pg (27-31); MEAN CORPUSCULAR HGB CONC 34 g/dL (33-37); MEAN CORPUSCULAR VOLUME 95.1 fL (80-94); MONOCYTES # (AUTO) 1.3 K/uL (0.8-1.0); MONOCYTES % (AUTO) 6.8 % (1.7-9.3); NEUTROPHILS # (AUTO) 16.2 K/uL (1.8-7.7); NEUTROPHILS % (AUTO) 87.1 % (42.2-75.2); PLATELET COUNT (AUTO) 245 K/uL (140-450); RED BLOOD CELL COUNT(AUTO) 2.93 MIL/uL (4.20-6.10); WHITE BLOOD COUNT (AUTO) 18.6 K/uL (4.8-10.8)
[2021-04-12 07:36] LABS: PROTHROMBIN TIME 11.8 secs (10.8-13.4)
[2021-04-12 07:46] LABS: ANION GAP 19.8 (8-16); POTASSIUM 3.8 mmol/L (3.5-5.1); TOTAL BILIRUBIN 1.4 mg/dL (0.0-1.0)
[2021-04-12 08:00] VITALS: BP 152/90
[2021-04-12 08:32] LABS: CREATININE 5.2 mg/dL (0.6-1.3)
[2021-04-12] MEDS: DOCUSATE SODIUM 100 MG GELCAP PO SCH (09:00)
[2021-04-12] MEDS: SENNA 8.6 MG TAB PO SCH ×2 (09:00→21:52)
--- NOTE | 2021-04-12 11:01 | NUR ---
PT COMPLAINING OF PAIN. STATING PAIN IS 10/10. RN TO ADMINISTER PAIN MEDICATION PER MD ORDER. WILL CONTINUE TO MONITOR.
--- NOTE | 2021-04-12 12:50 | NUR ---
OR TEAM ON UNIT TO POSTAL DELIVERY OFFICER PT FOR SCHEDULED PROCEDURE.
[2021-04-12] MEDS ORDERED: fentaNYL citrate 0.05 MG/ML VIAL ONE ×2 (13:12→14:19)
[2021-04-12] MEDS ORDERED: PROPOFOL 200 MG/20 ML VIAL IV ONE (13:14)
[2021-04-12] MEDS ORDERED: SUCCINYLCHOLINE CHLORIDE 200 MG/10 ML VIAL IVP ONE (13:14)
[2021-04-12] MEDS ORDERED: LIDOCAINE 1% 500 MG/50 ML VIAL ONE (13:24)
[2021-04-12] MEDS ORDERED: BUPIVACAINE-MPF/EPI 0.25% 10 ML VIAL INJ ONE (13:24)
[2021-04-12] MEDS ORDERED: SEVOFLURANE 250 ML BTL INH ONE (13:40)
[2021-04-12] MEDS ORDERED: ROCURONIUM 50 MG/5 ML VIAL IV ONE (13:55)
[2021-04-12] MEDS ORDERED: ePHEDrine 50 MG/ML VIAL ONE (14:04)
[2021-04-12] MEDS ORDERED: ONDANSETRON 4 MG/2 ML VIAL ONE (14:15)
[2021-04-12] MEDS ORDERED: ONDANSETRON 4 MG/2 ML VIAL IVP PRN (14:40)
[2021-04-12] MEDS ORDERED: diphenhydrAMINE 50 MG/ML VIAL IVP PRN (14:40)
[2021-04-12] MEDS ORDERED: HYDROmorphone 1 MG/ML AMP IVP PRN (14:40)
[2021-04-12] MEDS ORDERED: SUGAMMADEX SODIUM 200 MG/2 ML VIAL IV ONE (14:52)
--- NOTE | 2021-04-12 16:28 | NUR ---
PT BACK ON UNIT ACCOMPANIED BY OR TEAM. RESPIRATIONS ARE EVEN AND UNLABORED. NO SIGNS OF DISTRESS NOTED. PT IS RESTING AT THIS TIME. FAMILY AT BEDSIDE. WILL CONTINUE TO MONITOR.
--- NOTE | 2021-04-12 17:26 | NUR ---
PT REQUESTING JUICE AND WATER. EDUCATED PT REGARDING SUGAR CONTENT IN JUICES, AND WHAT THAT MEANS FOR HIM DUE TO HIS DIABETES AND BLOOD GLUCOSE READING.PT VERBALIZED UNDERSTANDING. WILL CONTINUE TO MONITOR.
--- NOTE | 2021-04-12 19:01 | NUR ---
OTHER IV MEDICATION ROCEPHIN STILL RUNNING. ENDORSED IV MEDICATION ZOSYN TO RUSSIAN TEACHER NURSE.
--- NOTE | 2021-04-12 19:10 | NUR ---
ENDORSED PT TO DIRECTOR SELECTION AND ADMINISTRATION NURSE FOR CONTINUITY OF CARE. PT IS STABLE.
--- NOTE | 2021-04-12 19:20 | NUR ---
RECEIVED PATIENT SITTING IN BED, DENIES SOB/RESPIRATORY DISTRESS. AXO X4. ABLE TO MAKE NEEDS KNOWN. CALL LIGHT WITHIN REACH, BED LOCKED AND IN LOWEST POSITION. WILL CONTINUE TO MONITOR.
[2021-04-12] MEDS: PIPERACILLIN/TAZOBACTAM 4.5 GM in DEXTROSE 5% 100 ML IV SCH (19:48)
[2021-04-12 20:00] VITALS: BP 130/81
[2021-04-12] MEDS: INSULIN LANTUS 100 UNITS/ML 10 ML VIAL SUBQ SCH (21:53)
[2021-04-13] MEDS: HYDROmorphone 1 MG/ML AMP IVP PRN ×2 (01:37→04:32)
--- NOTE | 2021-04-13 02:52 | NUR ---
COLOSTOMY BAG AND ABDOMINAL DRESSING CHANGED DUE TO SOILAGE. MID ABDOMEN CARRIE IN PLACE, NO SIGNS OR SYMPTOMS OF INFECTION. COLOSTOMY SITE CLEAN AND SKIN NO SKIN IRRITATION NOTED, ONE STAPLE IN PLACE. PATIENT TOLERATED WELL.
[2021-04-13 04:00] VITALS: BP 155/88
[2021-04-13] MEDS: metroNIDAZOLE 500 MG/NS PREMIX 100 ML IV SCH (04:21)
[2021-04-13] MEDS: PIPERACILLIN/TAZOBACTAM 4.5 GM in DEXTROSE 5% 100 ML IV SCH ×2 (06:18→18:41)
[2021-04-13] MEDS: LABETALOL 100 MG/20 ML VIAL IV SCH ×4 (06:23→23:56)
[2021-04-13 06:51] LABS: BASOPHILS % (AUTO) 0.1 % (0.0-2.0); EOSINOPHILS # (AUTO) 0.1 K/uL (0-0.4); EOSINOPHILS % (AUTO) 0.6 % (0.0-4.0); HEMATOCRIT 25.3 % (36-52); HEMOGLOBIN 8.6 g/dL (12.0-18.0); LYMPHOCYTES # (AUTO) 0.9 K/uL (2.0-11.5); LYMPHOCYTES % (AUTO) 4.3 % (20.5-51.1); MEAN CORPUSCULAR HEMOGLOBIN 32 pg (27-31); MEAN CORPUSCULAR HGB CONC 34 g/dL (33-37); MEAN CORPUSCULAR VOLUME 94.1 fL (80-94); MONOCYTES # (AUTO) 1.1 K/uL (0.8-1.0); MONOCYTES % (AUTO) 5.4 % (1.7-9.3); NEUTROPHILS # (AUTO) 18.3 K/uL (1.8-7.7); PLATELET COUNT (AUTO) 267 K/uL (140-450); RED BLOOD CELL COUNT(AUTO) 2.68 MIL/uL (4.20-6.10); RED CELL DISTRIBUTION WIDTH 14.9 % (11.6-13.7); WHITE BLOOD COUNT (AUTO) 20.5 K/uL (4.8-10.8)
[2021-04-13] MEDS: NACL 0.9% 1,000 ML IV SCH ×2 (07:20→22:36)
[2021-04-13] MEDS: BLOOD GLUCOSE MONITORING 1 DEV DEV FS SCH ×4 (07:30→21:29)
--- NOTE | 2021-04-13 07:30 | NUR ---
RECEIVED ENDORSEMENT FROM REIMBURSEMENT SPEC NURSE FOR CONTINUITY OF CARE.
[2021-04-13 08:01] LABS: ALBUMIN 1.7 g/dL (3.4-5.0); ANION GAP 18.2 (8-16); CARBON DIOXIDE 21.3 mmol/L (21-32); POTASSIUM 3.5 mmol/L (3.5-5.1)
[2021-04-13 08:22] LABS: NEUTROPHILS % (AUTO) 89.6 % (42.2-75.2)
[2021-04-13 08:22] LABS: CREATININE 5.9 mg/dL (0.6-1.3)
--- NOTE | 2021-04-13 08:23 | NUR ---
RECEIVED CRITICAL LEVEL OF BUN 77 AND CREATININE OF 5.9 LEFT MESSAGE TO .
--- NOTE | 2021-04-13 08:31 | NUR ---
PT NOTED WITH DI[place]HEA HOLD DSS AND SENNA AND INFORM DR. GUZMÁN OF DI[place] AND THE ANTIBIOTIC NEED TO RENEW IF HE WANTS TO CONTINUE IT .
[2021-04-13] MEDS: INSULIN LISPRO SLIDING SCALE 100 UNITS/ML VIAL SUBQ PRN ×4 (08:33→21:33)
[2021-04-13] MEDS: DOCUSATE SODIUM 100 MG GELCAP PO SCH (08:37)
[2021-04-13] MEDS: SENNA 8.6 MG TAB PO SCH ×2 (08:38→21:00)
--- NOTE | 2021-04-13 10:30 | NUR ---
DIALYSIS NURSE AT BED SIDE.
--- NOTE | 2021-04-13 11:05 | NUR ---
DR. WEN AT BED SIDE INFORM REGARDING THE LABS AND IV HYDRATION AND THE DIARRHEA.
[2021-04-13 12:00] VITALS: BP 133/73
--- NOTE | 2021-04-13 12:07 | NUR ---
DIALYSIS NOT DONE TODAY MD WANT TO WAIT FOR ANOTHER DAY. IF THE LABS WILL CHANGE.
[2021-04-13] MEDS ORDERED: metroNIDAZOLE 500 MG/NS PREMIX 100 ML IV SCH (13:00)
--- NOTE | 2021-04-13 14:00 | NUR ---
AT BED SIDE. PT ON STABLE CONDITION. NO SIGNIFICANT CHANGE IN CONDITION. ALL SAFETY MEASURE IN PLACE.
--- NOTE | 2021-04-13 16:30 | NUR ---
BLOOD SUGAR CHECK GIVEN INSULIN COVERAGE.
--- NOTE | 2021-04-13 18:49 | NUR ---
PT ON BED EATING DINNER. HOLD LABETALOL DUE BLOOD PRESSURE OF 132/84.RN GAVE IV ANTIBIOTIC TOLERATED WELL NO ADVERSE REACTION NOTED. ASSISTED TO TOILET.YANG INTACT WITH BRIGHT BLOOD DRAINAGE.
--- NOTE | 2021-04-13 19:05 | NUR ---
GAVE REPORT TO LUBE TECHNICIAN NURSE FOR CONTINUITY OF CARE.
--- NOTE | 2021-04-13 19:06 | NUR ---
RECD. RESTING IN BED, AWAKE, A/OX4. RESPIRATION EVEN AND UNLABORED. IV OF NS INFUSING AT 50 ML/HR, RIGHT AC G20. WITH RIGHT IJ MICHAEL CATH, INTACT. INCISION IN THE ABDOMEN (3) ALL DRY AND INTACT, WITH 1 YANG DRAINING SANGUINOUS FLUID MODERATE AMOUNT. AMBULATE WITH ASSISTANCE TO THE BR. PAIN IN THE INCISION 1/10, STATED TOLERABLE. ON IV ANTIBIOTICS.
--- NOTE | 2021-04-13 20:30 | NUR ---
REQUESTED TO BE ASSISTED TO BR TO VOID. BACK TO BED AFTER VOIDING.
--- NOTE | 2021-04-13 21:00 | NUR ---
Patient's Plan of Care was discussed and reviewed with APPRENTICE EMBALMER: NEGRITA EVANS
[2021-04-13] MEDS ORDERED: LORazepam 2 MG/ML VIAL IM/IVP PRN (21:20)
--- NOTE | 2021-04-13 21:29 | NUR ---
WATCHING TV. SNACK FOR THE NIGHT GIVEN.
[2021-04-13] MEDS: INSULIN LANTUS 100 UNITS/ML 10 ML VIAL SUBQ SCH (21:35)
--- NOTE | 2021-04-13 22:30 | NUR ---
REQUESTED AGAIN TO BE ASSISTED GET OUT OF BED TO VOID IN THE BR. BACK TO BED AFTER VOIDING.
[2021-04-13] MEDS: HYDROcodone/APAP 5/325 MG 1 TAB TAB PO PRN (22:37)
[2021-04-13] MEDS: MELATONIN 3 MG TAB PO PRN (22:38)
--- NOTE | 2021-04-13 22:38 | NUR ---
UNABLE TO SLEEP, MEDICATED WITH MELATONIN PER MD ORDER.
--- NOTE | 2021-04-13 23:38 | NUR ---
RESTING COMFORTABLY IN BED. STILL AWAKE.
[2021-04-14] VITALS: BP 136/84
--- NOTE | 2021-04-14 00:30 | NUR ---
SLEEPING COMFORTABLY IN BED. RESPIRATION EVEN AND UNLABORED. CALL LIGHT IN REACH.
--- NOTE | 2021-04-14 04:00 | NUR ---
TRIED TO PULL OUT HIS IV. WANTS TO GO TO THE BR. CANNOT WAIT FOR THE NURSE TO COME. BLOOD DRIP ON THE FLOOR OF THE BR. FLUSHED IV LINE, STILL WORKING. REINFORCED WITH TAPES.
[2021-04-14] MEDS: HYDROcodone/APAP 5/325 MG 1 TAB TAB PO PRN (04:44)
[2021-04-14] MEDS: LABETALOL 100 MG/20 ML VIAL IV SCH ×3 (06:00→18:35)
[2021-04-14] MEDS: PIPERACILLIN/TAZOBACTAM 4.5 GM in DEXTROSE 5% 100 ML IV SCH (06:33)
--- NOTE | 2021-04-14 07:00 | NUR ---
CONDITION REMAIN STABLE. ALL NEEDS ATTENDED. WILL ENDORSE TO AM SHIFT NURSE FOR CONTINUITY OF CARE.
[2021-04-14 07:23] LABS: ALBUMIN 1.7 g/dL (3.4-5.0); ANION GAP 20.2 (8-16); CARBON DIOXIDE 20.1 mmol/L (21-32); POTASSIUM 3.3 mmol/L (3.5-5.1)
[2021-04-14 07:31] LABS: BASOPHILS % (AUTO) 0.2 % (0.0-2.0); EOSINOPHILS # (AUTO) 0.2 K/uL (0-0.4); EOSINOPHILS % (AUTO) 0.9 % (0.0-4.0); HEMATOCRIT 23.8 % (36-52); HEMOGLOBIN 8.1 g/dL (12.0-18.0); LYMPHOCYTES # (AUTO) 0.8 K/uL (2.0-11.5); LYMPHOCYTES % (AUTO) 3.7 % (20.5-51.1); MEAN CORPUSCULAR HEMOGLOBIN 32 pg (27-31); MEAN CORPUSCULAR HGB CONC 34 g/dL (33-37); MONOCYTES % (AUTO) 4.4 % (1.7-9.3); PLATELET COUNT (AUTO) 290 K/uL (140-450); RED BLOOD CELL COUNT(AUTO) 2.53 MIL/uL (4.20-6.10); RED CELL DISTRIBUTION WIDTH 14.8 % (11.6-13.7)
[2021-04-14] MEDS: BLOOD GLUCOSE MONITORING 1 DEV DEV FS SCH ×4 (07:45→21:25)
[2021-04-14] MEDS: INSULIN LISPRO SLIDING SCALE 100 UNITS/ML VIAL SUBQ PRN ×3 (07:46→21:27)
[2021-04-14 08:00] VITALS: BP 141/85
--- NOTE | 2021-04-14 08:00 | NUR ---
RECEIVED REPORT FROM BUSINESS DEVELOPMENT ASSOCIATE FOR CONTINUITY OF CARE. PATIENT ALERT AWAKE ORIENTED X4, NOT IN DISTRESS NOTED. WITH IVF ON GOING AND INFUSING WELL. WITH RIGHT IJ MICHAEL CATH WITH DRESSING DRY AND INTACT.DENIES PAIN AT THIS TIME. BED IN LOW POSITION. NEEDS ATTENDED. WILL CONTINUE TO MONITOR.
[2021-04-14] MEDS: ENOXAPARIN 30 MG/0.3 ML SYR SUBQ SCH (08:34)
[2021-04-14] MEDS: SENNA 8.6 MG TAB PO SCH ×2 (08:35→21:25)
[2021-04-14] MEDS: DOCUSATE SODIUM 100 MG GELCAP PO SCH (08:35)
[2021-04-14 09:08] LABS: CREATININE 6.1 mg/dL (0.6-1.3)
--- NOTE | 2021-04-14 09:30 | NUR ---
LINEN CHANGED, PATIENT ENCOURAGED TO AMBULATE, EMPTIED YANG WITH LIGHT COLOR OUTPUT 100 ML. IN AMOUNT. WILL CONTINUE TO MONITOR.
[2021-04-14 09:50] LABS: NEUTROPHILS % (AUTO) 90.8 % (42.2-75.2)
--- NOTE | 2021-04-14 10:02 | NUR ---
(04/14/21) RD FOLLOW UP COMPLETED PLEASE REFER TO NUTRITION PROGRESS NOTE UNDER CARE ACTIVITY FOR ESTIMATED NUTRITION NEEDS. RD RECOMMENDATIONS: 1. CONTINUE CCHO 60 GM DIET TOLERATED. 2. PER PROTOCOL, RDN TO ADD GLUCERNA 1 BOTTLE WITH MEALS TID TO HELP MEET EST KCAL AND PROTEIN NEEDS. GLUCERNA 1 BOTTLE TID WILL PROVIDE 660 KCAL AND [address] WILL F/U 3-5 DAYS; MODERATE RISK. SHERMAN LLOYD, , RDN
--- NOTE | 2021-04-14 13:00 | NUR ---
SEEN BY DR. ROGEL AND HE SAID TO DC IVF. FOR DIALYSIS TODAY. PINKY IS AWARE.
[2021-04-14 16:00] VITALS: BP 147/85
--- NOTE | 2021-04-14 16:36 | NUR ---
PATIENT HAD DIALYSIS ABLE TO TAKE OUT 1L OUTPUT, TOLERATED WELL. WILL CONTINUE TO MONITOR.
[2021-04-14] MEDS: PIPERACILLIN/TAZOBACTAM 4.5 GM in NACL 0.9% 100 ML IV SCH (18:35)
--- NOTE | 2021-04-14 18:45 | NUR ---
PATIENT RESTING IN BED, AT BEDSIDE. NEEDS ATTENDED. LABETALOL IV PUSH GIVEN ORDERED. WILL ENDORSE TO THE NEXT SHIFT.
[2021-04-14 20:00] VITALS: BP 142/72
[2021-04-14] MEDS: INSULIN LANTUS 100 UNITS/ML 10 ML VIAL SUBQ SCH (21:26)
[2021-04-15 04:00] VITALS: BP_SYST 122; BP_SYST 137; BP_DIAS 76; BP_DIAS 82
[2021-04-15] MEDS: LABETALOL 100 MG/20 ML VIAL IV SCH ×4 (05:36→17:20)
[2021-04-15] MEDS: PIPERACILLIN/TAZOBACTAM 4.5 GM in NACL 0.9% 100 ML IV SCH ×2 (05:37→17:13)
[2021-04-15] MEDS: BLOOD GLUCOSE MONITORING 1 DEV DEV FS SCH ×4 (05:38→21:00)
[2021-04-15] MEDS: INSULIN LISPRO SLIDING SCALE 100 UNITS/ML VIAL SUBQ PRN ×4 (06:23→22:11)
[2021-04-15 07:19] LABS: ALBUMIN 1.9 g/dL (3.4-5.0); ANION GAP 14.6 (8-16); CARBON DIOXIDE 24.2 mmol/L (21-32); TOTAL BILIRUBIN 1.2 mg/dL (0.0-1.0)
[2021-04-15 07:24] LABS: CREATININE 4.7 mg/dL (0.6-1.3); POTASSIUM 2.8 mmol/L (3.5-5.1)
--- NOTE | 2021-04-15 07:30 | NUR ---
RECEIVED PT ON BED AAOX4. NO SOB NOTED, NO C/O PAIN AT THIS TIME. IV TO RAC PATENT AND INTACT. RT IJ HD CATHETER IN PLACE. CHEST, DIMINISHED AIR ENTRY TO THE BASES, OTHERWISE CLEAR. ABDOMEN LARGE WITH 4 LAP INCISIONS WITH ONE YANG DRAIN, DRAINING SMALL AMOUNTS OF SERO SANGUINOUS FLUID. INSTRUCTED PT TO CALL FOR ASSISTANCE, CALL LIGHT WITHIN REACH, VERBALIZED UNDERSTANDING.
[2021-04-15 07:34] LABS: BASOPHILS # (AUTO) 0.1 K/uL (0.00-0.22); BASOPHILS % (AUTO) 0.2 % (0.0-2.0); EOSINOPHILS # (AUTO) 0.2 K/uL (0-0.4); HEMATOCRIT 25.6 % (36-52); HEMOGLOBIN 8.7 g/dL (12.0-18.0); LYMPHOCYTES # (AUTO) 1.1 K/uL (2.0-11.5); LYMPHOCYTES % (AUTO) 4.9 % (20.5-51.1); MEAN CORPUSCULAR HEMOGLOBIN 32 pg (27-31); MEAN CORPUSCULAR HGB CONC 34 g/dL (33-37); MEAN CORPUSCULAR VOLUME 93.5 fL (80-94); MONOCYTES # (AUTO) 1.1 K/uL (0.8-1.0); MONOCYTES % (AUTO) 4.5 % (1.7-9.3); NEUTROPHILS % (AUTO) 89.4 % (42.2-75.2); PLATELET COUNT (AUTO) 366 K/uL (140-450); RED BLOOD CELL COUNT(AUTO) 2.74 MIL/uL (4.20-6.10); RED CELL DISTRIBUTION WIDTH 14.9 % (11.6-13.7); WHITE BLOOD COUNT (AUTO) 23.4 K/uL (4.8-10.8)
[2021-04-15 08:00] VITALS: BP 157/87
[2021-04-15] MEDS ORDERED: POTASSIUM CHLORIDE 10 MEQ TABER PO SCH (09:00)
[2021-04-15] MEDS: SENNA 8.6 MG TAB PO SCH ×2 (09:58→21:00)
[2021-04-15] MEDS: DOCUSATE SODIUM 100 MG GELCAP PO SCH (09:59)
[2021-04-15] MEDS: ENOXAPARIN 30 MG/0.3 ML SYR SUBQ SCH (10:06)
[2021-04-15 17:00] VITALS: BP 152/85
--- NOTE | 2021-04-15 18:00 | NUR ---
TOTAL YANG DRAIN IN 12 HOURS: 320 MLS, SEROUS FLUID NOTED.
--- NOTE | 2021-04-15 19:30 | NUR ---
PT AWAKE, WATCHING TV. NO COMPLAINTS MADE. ENDORSED TO NEXT SHIFT NURSE FOR CONTINUITY OF CARE.
--- NOTE | 2021-04-15 19:31 | NUR ---
RECEIVED REPORT FROM MORNING SHIFT NURSE FOR CONTINUITY OF CARE. PATIENT IS STABLE IN BED. A&0X4. VERBALLY RESPONSIVE AND ABLE TO COMMUNICATE NEEDS. DENIES PAIN. ON ROOM AIR WITH NO APPARENT S/SX OF ACUTE DISTRESS. BREATHING EVEN AND UNLABORED. IV SITE TO THE [facility] 2G SL. PATIENT HAS RIJ MICHAEL CATH. PATIENT IS S/P LAPPY. PLAN OF CARE AND WHITE COMMUNICATION BOARD UPDATED. BED IN LOW/LOCKED POSITION. CALL LIGHT WITHIN REACH. PATIENT ENCOURAGED TO CALL FOR ANY NEEDS/ASSISTANCE. WILL CONTINUE TO MONITOR.
[2021-04-15 20:00] VITALS: BP 130/70
[2021-04-15] MEDS: INSULIN LANTUS 100 UNITS/ML 10 ML VIAL SUBQ SCH (21:00)
--- NOTE | 2021-04-15 21:10 | NUR ---
ADMINISTERED SCHEDULED MEDICATIONS PER MD ORDER. TOLERATED WELL. NO ADVERSE REACTION NOTED. DENIES PAIN. RESPIRATIONS EVEN AND UNLABORED WITH NO APPARENT S/SX OF ACUTE DISTRESS. SNACKS PROVIDED. ALL SAFETY MEASURES IN PLACE. WHITE COMMUNICATION BOARD UPDATED. ALL SAFETY MEASURES IN PLACE. CALL LIGHT WITHIN REACH. WILL CONTINUE TO MONITOR.
[2021-04-15] MEDS: MELATONIN 3 MG TAB PO PRN (22:15)
--- NOTE | 2021-04-15 23:10 | NUR ---
CHECKED PATIENT. STABLE AND ASLEEP. CHEST IS RISING AND FALLING EVENLY. RESPIRATIONS EVEN AND UNLABORED WITH NO APPARENT S/SX OF ACUTE DISTRESS. WHITE COMMUNICATION BOARD UPDATED. ALL SAFETY MEASURES IN PLACE. CALL LIGHT WITHIN REACH. WILL CONTINUE TO MONITOR.
[2021-04-16] MEDS: HYDROcodone/APAP 5/325 MG 1 TAB TAB PO PRN (00:17)
--- NOTE | 2021-04-16 01:10 | NUR ---
ROUNDED ON PATIENT. STABLE AND ASLEEP. CHEST IS RISING AND FALLING EVENLY. RESPIRATIONS EVEN AND UNLABORED WITH NO APPARENT S/SX OF ACUTE DISTRESS. WHITE COMMUNICATION BOARD UPDATED. ALL SAFETY MEASURES IN PLACE. CALL LIGHT WITHIN REACH. WILL CONTINUE TO MONITOR.
[2021-04-16 04:00] VITALS: BP 133/86
--- NOTE | 2021-04-16 05:05 | NUR ---
OBTAINED VITAL SIGNS AND WNL. LABETOLOL HELD PER PARAMETER ORDER. DENIES PAIN. RESPIRATIONS EVEN AND UNLABORED WITH NO APPARENT S/SX OF ACUTE DISTRESS. YANG DRAINED. ALL NEEDS MET. WHITE COMMUNICATION BOARD UPDATED. ALL SAFETY MEASURES IN PLACE. CALL LIGHT WITHIN REACH. WILL CONTINUE TO MONITOR.
[2021-04-16] MEDS: LABETALOL 100 MG/20 ML VIAL IV SCH ×4 (05:42→18:00)
[2021-04-16] MEDS: BLOOD GLUCOSE MONITORING 1 DEV DEV FS SCH ×4 (06:31→21:33)
[2021-04-16] MEDS: INSULIN LISPRO SLIDING SCALE 100 UNITS/ML VIAL SUBQ PRN ×4 (06:33→21:39)
[2021-04-16] MEDS: PIPERACILLIN/TAZOBACTAM 4.5 GM in NACL 0.9% 100 ML IV SCH ×2 (06:57→18:46)
--- NOTE | 2021-04-16 07:05 | NUR ---
ENDORSED PATIENT TO MORNING SHIFT NURSE FOR CONTINUITY OF CARE. PATIENT IS STABLE.
--- NOTE | 2021-04-16 07:07 | NUR ---
RECEIVED REPORT FROM EDGE FINISHER NURSE FOR CONTINUITY OF CARE. PT IN BED AT THIS TIME ON THIS PHONE. RESPIRATIONS ARE EVEN AND UNLABORED. NO SIGNS OF DISTRESS NOTED. PT ON NATALIE AIR, WITH 02 SAT AT 100%. HR IS 66. ABD IS NONTENDER, NON DISTENDED WITH BOWEL SOUNDS PRESENT. PT IS ON CCHO 60GRAM DIET. PT LAST BM WAS LAST NIGHT 04/15/21. PT HAS IV TO R AC, SALINE LOCK. PT HAS YANG DRAIN TO RUQ, PATENT AND INTACT WITH SEROSANGUINEOUS FLUID DRAINING. NO COMPLAINTS OF PAIN OR DISCOMFORT NOTED. CALL LIGHT WITHIN REACH. ALL SAFETY MEASURES IN PLACE. WILL CONTINUE TO MONITOR.
[2021-04-16 08:00] VITALS: BP 132/80
[2021-04-16 08:16] LABS: BASOPHILS % (AUTO) 0.2 % (0.0-2.0); EOSINOPHILS # (AUTO) 0.1 K/uL (0-0.4); EOSINOPHILS % (AUTO) 0.7 % (0.0-4.0); HEMATOCRIT 23.1 % (36-52); HEMOGLOBIN 7.8 g/dL (12.0-18.0); MEAN CORPUSCULAR HEMOGLOBIN 32 pg (27-31); MEAN CORPUSCULAR HGB CONC 34 g/dL (33-37); MEAN CORPUSCULAR VOLUME 94.3 fL (80-94); MONOCYTES # (AUTO) 1.2 K/uL (0.8-1.0); MONOCYTES % (AUTO) 6.1 % (1.7-9.3); PLATELET COUNT (AUTO) 351 K/uL (140-450); RED BLOOD CELL COUNT(AUTO) 2.45 MIL/uL (4.20-6.10); WHITE BLOOD COUNT (AUTO) 20.4 K/uL (4.8-10.8)
[2021-04-16] MEDS: SENNA 8.6 MG TAB PO SCH ×2 (09:01→21:00)
[2021-04-16] MEDS: DOCUSATE SODIUM 100 MG GELCAP PO SCH (09:01)
[2021-04-16] MEDS: ENOXAPARIN 30 MG/0.3 ML SYR SUBQ SCH (09:02)
--- NOTE | 2021-04-16 09:05 | NUR ---
ADMINISTERED SCHEDULED MEDICATIONS. EDUCATED PT REGARDING MEDS ADMINISTERED. WILL CONTINUE TO MONITOR.
[2021-04-16 09:40] LABS: ALBUMIN 1.8 g/dL (3.4-5.0); ANION GAP 14.5 (8-16); CARBON DIOXIDE 22.7 mmol/L (21-32); POTASSIUM 3.2 mmol/L (3.5-5.1); TOTAL BILIRUBIN 1.1 mg/dL (0.0-1.0)
[2021-04-16 09:58] LABS: CREATININE 4.6 mg/dL (0.6-1.3)
--- NOTE | 2021-04-16 09:58 | NUR ---
LAB CALLED WITH CRITICAL VALUE, CREATININE 4.6, MADE AWARE.
--- NOTE | 2021-04-16 11:21 | NUR ---
PT BLOOD GLUCOSE WAS 208. WILL ADMINISTER 4 UNITS PER SLIDING SCALE. WILL CONTINUE TO MONITOR.
--- NOTE | 2021-04-16 14:35 | NUR ---
DID ROUNDS ON PT. PT IN BED RESTING AT THIS TIME. FAMILY AT BEDSIDE. RESPIRATIONS EVEN AND UNLABORED. NO SIGNS OF DISTRESS NOTED. CALL LIGHT WITHIN REACH. ALL SAFETY MEASURES IN PLACE. WILL CONTINUE TO MONITOR.
--- NOTE | 2021-04-16 15:45 | NUR ---
DC PLANNING: THE PATIENT PRESENTED TO THE ED WITH C/O ABDOMINAL PAIN. WENT FOR AN ERCP WITH STENT, WAS FOUND TO HAVE LADI ON ADMISSION. STARTED HD AFTER CREATININE CONTINUED TO RISE, THEN WENT FOR A LAP SYEDA. GILMAR SPOKE WITH THE PATIENT AT BEDSIDE AND CONFIRMED HIS ADDRESS AND PHONE NUMBER. HE LIVES WITH HIS AND 2 CHILDREN IN A SINGLE STORY HOUSE AND HAS NO DME OF H/O HOME HEALTH. HE WAS INDEPENDENT IN ALL ACTIVITIES PRIOR TO HOSPITALIZATION. GILMAR SPOKE WITH DR ROGEL REGARDING OP HD, ASKED THAT CM START WITH [facility] BASED ON PATIENTS ADDRESS AND INSURANCE. GILMAR ALSO SPOKE WITH DR TAYLOR WHO ASKED CM TO HOLD ON MAKING ARRANGEMENTS OP HD MIGHT NOT BE NEEDED. PATIENT CONTINUES WITH A YANG DRAIN, WILL NEED A TUNNEL CATH IF OP HD IS NEEDED. WBC 20.4 TODAY CR. 4.6. WILL FOLLOW FOR NEEDS. Addendum: 04/16/21 at 1550 by Randa Rodriguez Amended: Links added. Addendum: 04/16/21 at 1831 by Audrey Allen DC PLANNING PATIENT IS A 45-YEAR-OLD MALE ADMITTED ON A 04/06/2021 FROM THE [facility]/ED DUE TO SHORTNESS OF BREATH WITH ABDOMINAL PAIN. SIMONA AND GILMAR MET WITH PATIENT AND HIS SASHA DE LA ROSA AT BEDSIDE TO DISCUSS AND GATHER HIS COLLATERAL INFORMATION. PATIENT REPORTED LIVING AT HOME WITH HIS AND TWO CHILDREN IN [facility]. PATIENT THAT HIS IS HIS EMERGENCY CONTATC AND THAT HE HAS NO ADVANCE DIRECTIVES AND WAS INTERESTED ON GETTING INF. PACKET PROVIDED BY THESE ELDER ASSISTANT DURING THE VISIT. PATIENT REPORTED NOT HAVING ANY ISSUES GETTING OR TAKING HIS MEDICATIONS FROM THE [facility] IN [place] AND [place] NEAR HIS HOME. IN [facility]. PATIENT STATED THAT HE DO NOT HAVE DME AT HOME. SW INFORMED PATIENT THAT A FOLLOW UP APPOINTMENT WILL BE IMPORTANT TO SCHEDULED WITH HIS PCP WITHIN 7 DAYS OF DISCHARGE FROM [facility]. PATIENT AGREED AND REPORTED THAT HE NO PCP AT THESE TIME AND ASKED IF HE CAN GET INFORMATION ABOUT HIS CURRENT DR. CARING FOR HIM HIS POSSIBLE PCP. SW WILL PROVIDE INFORMATION AND REFERRAL FOR PATIENT TO CONTINUE WITH HIS CARE WITH [facility] IN [place]. PER PATIENT HE WILL BE GOING BACK HOME WITH THE ASSISTANCE OF HIS SASHA WHO WILL PICK HIM UP AND TAKE HIM HOME WHEN HE IS READY FOR DC FROM [facility]. SW THANK HIM FOR THE INFORMATION PROVIDED AND LEFT THE ROOM. SW WILL FOLLOW UP NEEDED. Addendum: 04/18/21 at 1616 by Randa Rodriguez CM DC PLANNING: GILMAR SPOKE WITH ANN TAYLOR AND SUSSY REGARDING OP HD. AGREED THAT PATIENT WILL NOT HAVE OP HD SET UP AND TUNNEL CATH WILL NOT BE PLACED. PATIENT NOT CLEARED FOR DC BY SURGERY, WBC'S TODAY 18.8. GILMAR WILL START ARRANGING HOME HEALTH F/U THROUGH HIS INSURANCE AND DR TAYLOR WILL SPEAK WITH DR TOVAR ABOUT DC'ING THE YANG. GILMAR WILL FOLLOW. Addendum: 04/19/21 at 1455 by Randa Rodriguez CM DC PLANNING: ORDER RECEIVED FOR HOME HEALTH RN AND P.T., GILMAR FAXED ORDER AND CLINICAL PACKET TO [facility] WHO WILL ARRANGE HOME HEALTH THROUGH THEIR CONTRACTED VENDOR. GILMAR WILL FOLLOW.
--- NOTE | 2021-04-16 16:54 | NUR ---
BG WAS 283. COVERED WITH 6 UNITS. WILL CONTINUE TO MONITOR.
--- NOTE | 2021-04-16 17:20 | NUR ---
REVIEWED WITH DR. ERASTO LIANG PATIENT PULMONARY STATUS, HHN THERAPY RESPIRATORY DRUGS AND FREQUENCY VORBO: HHN Q6 ALYSSA; OXYGEN SATURATION GREATER THAN 90% Addendum: 04/16/21 at 1724 by Fox Ro RT DOCUMENTED SYLVESTERING PATIENT Addendum: 04/16/21 at 1725 by Fox Ro RT WRING = WRONG
--- NOTE | 2021-04-16 18:46 | NUR ---
IV ANTIBIOTICS ADMINISTERED BY RN. WILL CONTINUE TO MONITOR.
--- NOTE | 2021-04-16 19:02 | NUR ---
PT IN BED RESTING AT THIS TIME. ALL NEEDS MET THROUGHOUT SHIFT. PT IS STABLE. WILL ENDORSE TO DIRECTOR OF CONSULTING SERVICES NURSE.
--- NOTE | 2021-04-16 19:20 | NUR ---
RECD. RESTING IN BED, AWAKE, A/OX4. RESPIRATION EVEN AND UNLABORED. IV OF NS AT TKO INFUSING, RIGHT AC G18. INCISION IN THE ABDOMEN (4) WITH BAND AID DRESSING, ALL DRY AND INTACT, WITH ONE YANG DRAINING SANGUINOUS FLUID, MODERATE AMOUNT. AMBULATORY TO THE BR. DENIES PAIN 0/10.
--- NOTE | 2021-04-16 19:20 | NUR ---
RECD. RESTING IN BED, AWAKE, A/OX4. RESPIRATION EVEN AND UNLABORED. WATCHING TV. REFUSED TO BE CONNECTED TO IV MACHINE, WANTS LATER. EXPLAINED IT'S IMPORTANCE BUT STILL REFUSED. UPSET THAT HIS SURGERY WAS POSTPONED TODAY. AMBULATORY TO THE BR. DENIES PAIN . Addendum: 04/16/21 at 2214 by Isaura Crews LVN CORRECTION: THIS NOTES IS NOT FOR THIS PATIENT.
--- NOTE | 2021-04-16 20:00 | NUR ---
Patient's Plan of Care was discussed and reviewed with TANK DRIVER: CRISTINA
--- NOTE | 2021-04-16 21:13 | NUR ---
RESTING IN BED, SNACK FOR THE NIGHT GIVEN.
[2021-04-16] MEDS: INSULIN LANTUS 100 UNITS/ML 10 ML VIAL SUBQ SCH (21:41)
[2021-04-17] VITALS: BP 138/85
--- NOTE | 2021-04-17 | NUR ---
SLEEPING COMFORTABLY IN BED. RESPIRATION EVEN AND UNLABORED.
--- NOTE | 2021-04-17 02:00 | NUR ---
AMBULATED TO THE BR TO HAVE BM, BACK TO BED AND WENT BACK TO SLEEP.
[2021-04-17] MEDS: HYDROcodone/APAP 5/325 MG 1 TAB TAB PO PRN ×2 (03:00→23:30)
--- NOTE | 2021-04-17 04:00 | NUR ---
WARM BLANKET GIVEN REQUESTED. ICE WATER AND ICE CHIPS GIVEN/
[2021-04-17] MEDS: LABETALOL 100 MG/20 ML VIAL IV SCH ×5 (06:00→23:31)
--- NOTE | 2021-04-17 06:00 | NUR ---
BP - 138/80, HR - 85, TRANDATE NOT ADMINISTERED, BP IS NOT ABOVE 140.
[2021-04-17] MEDS: PIPERACILLIN/TAZOBACTAM 4.5 GM in NACL 0.9% 100 ML IV SCH ×2 (06:30→18:17)
[2021-04-17] MEDS: BLOOD GLUCOSE MONITORING 1 DEV DEV FS SCH ×4 (06:57→20:30)
--- NOTE | 2021-04-17 07:00 | NUR ---
CONDITION REMAIN STABLE. WILL ENDORSE TO AM SHIFT NURSE FOR CONTINUITY OF CARE.
[2021-04-17] MEDS: INSULIN LISPRO SLIDING SCALE 100 UNITS/ML VIAL SUBQ PRN ×4 (07:01→20:29)
--- NOTE | 2021-04-17 07:15 | NUR ---
RECEIVED REPORT FROM TACO MAKER NURSE FOR CONTINUITY OF CARE. PT IN BED AT THIS TIME. RESPIRATIONS ARE EVEN AND UNLABORED. ON ROOM AIR, NO SIGNS OF DISTRESS NOTED. NO COMPLAINTS OF PAIN OR DISCOMFORT NOTED. PT ABLE TO VERBALIZE NEEDS TO STAFF. CALL LIGHT WITHIN REACH. ALL SAFETY MEASURES IN PLACE. WILL CONTINUE TO MONITOR.
[2021-04-17 07:23] LABS: BASOPHILS % (AUTO) 0.2 % (0.0-2.0); EOSINOPHILS # (AUTO) 0.1 K/uL (0-0.4); EOSINOPHILS % (AUTO) 0.4 % (0.0-4.0); HEMATOCRIT 21.9 % (36-52); HEMOGLOBIN 7.4 g/dL (12.0-18.0); LYMPHOCYTES % (AUTO) 5.4 % (20.5-51.1); MEAN CORPUSCULAR HEMOGLOBIN 32 pg (27-31); MEAN CORPUSCULAR HGB CONC 34 g/dL (33-37); MEAN CORPUSCULAR VOLUME 94.7 fL (80-94); MONOCYTES # (AUTO) 1.2 K/uL (0.8-1.0); MONOCYTES % (AUTO) 6.6 % (1.7-9.3); NEUTROPHILS # (AUTO) 16.5 K/uL (1.8-7.7); NEUTROPHILS % (AUTO) 87.4 % (42.2-75.2); PLATELET COUNT (AUTO) 373 K/uL (140-450); RED BLOOD CELL COUNT(AUTO) 2.31 MIL/uL (4.20-6.10); RED CELL DISTRIBUTION WIDTH 14.7 % (11.6-13.7); WHITE BLOOD COUNT (AUTO) 18.8 K/uL (4.8-10.8)
[2021-04-17 08:00] VITALS: BP 131/83
--- NOTE | 2021-04-17 08:00 | NUR ---
Patient's Plan of Care was discussed and reviewed with ACETYLENE TORCH SOLDERER: ELZA BERNARDO
[2021-04-17 08:20] LABS: ALBUMIN 1.7 g/dL (3.4-5.0); ANION GAP 15.7 (8-16); CARBON DIOXIDE 20.4 mmol/L (21-32); POTASSIUM 3.1 mmol/L (3.5-5.1); TOTAL BILIRUBIN 0.9 mg/dL (0.0-1.0)
[2021-04-17] MEDS: DOCUSATE SODIUM 100 MG GELCAP PO SCH (08:31)
[2021-04-17] MEDS: ENOXAPARIN 30 MG/0.3 ML SYR SUBQ SCH (08:31)
[2021-04-17] MEDS: SENNA 8.6 MG TAB PO SCH ×2 (08:31→20:31)
--- NOTE | 2021-04-17 08:31 | NUR ---
ADMINISTERED ALL SCHEDULED MEDICATIONS. EDUCATED PT REGARDING MEDS ADMINISTERED. ANSWERED ALL QUESTIONS. WILL CONTINUE TO MONITOR.
[2021-04-17 08:43] LABS: CREATININE 4.3 mg/dL (0.6-1.3)
--- NOTE | 2021-04-17 08:43 | NUR ---
LAB CALLED TO REPORT CRITICAL LAB VALUE OF CREATININE 4.3, DR MADE AWARE. AWAITING REPLY. WILL CONTINUE TO MONITOR.
[2021-04-17 09:06] LABS: HEPATITIS B SURFACE ANTIBODY Non Reactive (.); HEPATITIS B SURFACE ANTIGEN Negative (Negative)
--- NOTE | 2021-04-17 12:22 | NUR ---
PT BLOOD GLUCOSE WAS 214. COVERED WITH 4 UNITS INSULIN PER MD ORDER. EDUCATED PT REGARDING BLOOD GLUCOSE READING AND INSULIN ADMINISTRATION. ANSWERED ALL QUESTIONS. WILL CONTINUE TO MONITOR.
--- NOTE | 2021-04-17 15:00 | NUR ---
DID ROUNDS ON PT. PT IN BED WATCHING TV. FAMILY AT BEDSIDE. RESPIRATIONS ARE EVEN AND UNLABORED. NO SIGNS OF DISTRESS NOTED. NO COMPLAINTS OF PAIN OR DISCOMFORT. WILL CONTINUE TO MONITOR.
--- NOTE | 2021-04-17 17:52 | NUR ---
BLOOD GLUCOSE WAS 208. COVERED WITH 4 UNITS PER SLIDING SCALE. WILL CONTINUE TO MONITOR.
--- NOTE | 2021-04-17 18:17 | NUR ---
IV ANTIBIOTICS ADMINISTERED BY RN. WILL CONTINUE TO MONITOR.
--- NOTE | 2021-04-17 19:07 | NUR ---
ENDORSED PT TO HOGSHEAD STOCK CLERK NURSE FOR CONTINUITY OF CARE. ALL NEEDS MET THROUGHOUT SHIFT. PT IS STABLE.
[2021-04-17 20:00] VITALS: BP 147/74
[2021-04-17] MEDS: INSULIN LANTUS 100 UNITS/ML 10 ML VIAL SUBQ SCH (20:29)
[2021-04-18] VITALS: BP 148/82
[2021-04-18 04:32] VITALS: BP 153/95
[2021-04-18] MEDS: LABETALOL 100 MG/20 ML VIAL IV SCH ×3 (05:36→17:39)
[2021-04-18] MEDS: BLOOD GLUCOSE MONITORING 1 DEV DEV FS SCH ×4 (05:43→20:35)
[2021-04-18] MEDS: PIPERACILLIN/TAZOBACTAM 4.5 GM in NACL 0.9% 100 ML IV SCH ×2 (05:43→18:10)
[2021-04-18] MEDS: INSULIN LISPRO SLIDING SCALE 100 UNITS/ML VIAL SUBQ PRN ×4 (06:27→20:46)
--- NOTE | 2021-04-18 07:30 | NUR ---
RECEIVED BEDSIDE REPORT FROM COMMUNITY PHARMACIST NURSE FOR CONTINUITY OF CARE. PT IS AWAKE AND ALERT. A&OX4. ON RA WITH BREATHING UNLABORED. AMBULATORY INDEPENDENTLY. SKIN IS WARM AND DRY. 3 SURGICAL SITES ON THE ABD, S/P LAP CHOLEY. YANG DRAIN IN PLACE WELL. IV IS IN THE RIGHT AC 20 GAUGE SALINE LOCKED. RIGHT IJ MICHAEL CATH IN PLACE. PT IS STABLE. PLAN OF CARE DISCUSSED. Addendum: 04/18/[address] RN 4 SURGICAL SITES
[2021-04-18 08:00] VITALS: BP 150/78
[2021-04-18] MEDS: ENOXAPARIN 30 MG/0.3 ML SYR SUBQ SCH (08:46)
[2021-04-18] MEDS: SENNA 8.6 MG TAB PO SCH ×3 (08:47→20:36)
[2021-04-18] MEDS: DOCUSATE SODIUM 100 MG GELCAP PO SCH ×2 (08:47→09:00)
--- NOTE | 2021-04-18 08:53 | NUR ---
PT REFUSED LAXATIVES ORDERED. PT STATED HE MADE A MESS IN THE BED AND DOESN'T WANT THAT TO HAPPEN AGAIN. PROVIDED EDUCATION AND PT STILL REFUSED. HE STATED IF HE HAS TROUBLE HAVING A BM HE WILL ASK FOR THE MEDICATION AGAIN.
--- NOTE | 2021-04-18 12:00 | NUR ---
PT IS AWAKE AND ALERT. RESPONDING TO QUESTIONS APPROPRIATELY. NO SIGNS OF DISTRESS. PT DENIES PAIN. WILL CONTINUE TO MONITOR.
--- NOTE | 2021-04-18 13:53 | NUR ---
ROUNDED ON PT. FAMILY IS AT THE BEDSIDE. PT IS STABLE. TOLERATED LUNCH WELL. PT DENIES PAIN. WILL MONITOR.
--- NOTE | 2021-04-18 14:53 | NUR ---
04/18/21 RD FOLLOW UP COMPLETED PLEASE REFER TO NUTRITION ASSESSMENT UNDER CARE ACTIVITY FOR ESTIMATED NUTRITIONAL NEEDS. 1. CONTINUE CCHO 60 GM DIET TOLERATED. 2. IF PT CONTINUES TO HAVE INCREASED BLOOD GLUCOSE LEVELS, RECOMMEND CCHO 45GM DIET 3. DISCONTINUE GLUCERNA D/T PT WITH IMPROVED PO INTAKE AND INCREASED BLOOD SUGAR 4. MONITOR BLOOD GLUCOSE LEVELS 5. RD WILL F/U 3-5 DAYS; MODERATE RISK. KATHRYN ZARAGOZA RD
[2021-04-18 16:00] VITALS: BP 130/67
--- NOTE | 2021-04-18 17:00 | NUR ---
ABD WOUNDS WERE CLEANSED ORDERED. OLD BANDAGES REMOVED AND CLEANSED WITH NS/PATTED DRY. NEW BANDAGE WAS PLACED. FOUR SURGICAL WOUNDS ARE INTACT WITH CARRIE IN PLACE. NO DRAINAGE NOTED.
--- NOTE | 2021-04-18 19:19 | NUR ---
ENDORSED PT TO TECHNICAL IMPLEMENTATION LEAD NURSE FOR CONTINUITY OF CARE. PT IS STABLE AT THIS TIME. PLAN OF CARE DISCUSSED.
--- NOTE | 2021-04-18 19:20 | NUR ---
RECEIVED PATIENT REPORT FROM AM SHIFT NURSE FOR CONTINUITY OF CARE. PATIENT IN BED AWAKE, ALERT AND VERBALLY RESPONSIVE. ABLE TO VERBALIZE NEEDS. BREATHING EVEN AND UNLABORED WITH NO SOB NOTED. ALL SAFETY MEASURES IN PLACE. CALL LIGHT WITHIN REACH. WILL CONTINUE WITH CURRENT PLAN OF CARE.
--- NOTE | 2021-04-18 20:20 | NUR ---
ADMINISTERED ALL DUE MEDICATIONS PER MD ORDER. TOLERATED WELL. NO ASE NOTED.
[2021-04-18] MEDS: HYDROcodone/APAP 5/325 MG 1 TAB TAB PO PRN (20:37)
[2021-04-18] MEDS: INSULIN LANTUS 100 UNITS/ML 10 ML VIAL SUBQ SCH (20:47)
--- NOTE | 2021-04-18 22:30 | NUR ---
CHECKED ON PATIENT. SLEEPING WELL. BREATHING EVEN AND UNLABORED WITH NO SOB NOTED. NOT IN DISTRESS. ALL SAFETY MEASURES IN PLACE. CALL LIGHT WITHIN REACH. WILL CONTINUE TO MONITOR.
--- NOTE | 2021-04-19 01:35 | NUR ---
PATIENT ASLEEP. BREATHING EVEN AND UNLABORED WITH NO SOB NOTED. NOT IN DISTRESS. ALL SAFETY MEASURES IN PLACE. CALL LIGHT WITHIN REACH. WILL CONTINUE TO MONITOR.
--- NOTE | 2021-04-19 03:56 | NUR ---
ROUNDED ON PATIENT. PATIENT SOUNDS ASLEEP WITH HOB IN SEMI-FOWLERS POSITION. RESPIRATION EVEN AND UNLABORED WITH NO SOB NOTED. CALL LIGHT WITHIN REACH. WILL CONTINUE TO MONITOR.
[2021-04-19 04:00] VITALS: BP 151/83
[2021-04-19] MEDS: HYDROcodone/APAP 5/325 MG 1 TAB TAB PO PRN (04:12)
[2021-04-19] MEDS: LABETALOL 100 MG/20 ML VIAL IV SCH ×4 (06:00→17:57)
--- NOTE | 2021-04-19 06:00 | NUR ---
PATIENT IS AWAKE. BREATHING EVEN AND UNLABORED WITH NO SOB NOTED. NOT IN DISTRESS. DENIES ANY PAIN OR DISCOMFORT AT THIS TIME. CALL LIGHT WITHIN REACH. WILL CONTINUE TO MONITOR.
--- NOTE | 2021-04-19 06:30 | NUR ---
PER PHARMACIST WE STILL ADM ZOSYN DUE AT 0600 , INSPITE OF THE PHARMACIST D/C THIS AND PHARMACIST PUT IT A MISSED DOSE - PER ECHO VASCULAR TECH LEGION .
[2021-04-19] MEDS: BLOOD GLUCOSE MONITORING 1 DEV DEV FS SCH ×3 (06:40→17:56)
[2021-04-19] MEDS: INSULIN LISPRO SLIDING SCALE 100 UNITS/ML VIAL SUBQ PRN ×3 (06:40→17:57)
--- NOTE | 2021-04-19 07:40 | NUR ---
ENDORSED PATIENT REPORT TO AM SHIFT NURSE FOR CONTINUITY OF CARE. PATIENT IS STABLE.
--- NOTE | 2021-04-19 07:42 | NUR ---
RECEIVED BEDSIDE REPORT FROM TAXATION ACCOUNTANT NURSE FOR CONTINUITY OF CARE. PT IS AWAKE AND ALERT. A&OX4. ON RA WITH BREATHING UNLABORED. AMBULATORY INDEPENDENTLY. SKIN IS WARM AND DRY. 4 SURGICAL SITES ON THE ABD, S/P LAP CHOLEY. YANG DRAIN IN PLACE WELL. IV IS IN THE RIGHT AC 20 GAUGE SALINE LOCKED. RIGHT IJ MICHAEL CATH IN PLACE. NO DIALYSIS TODAY. PT IS STABLE. PLAN OF CARE DISCUSSED. SAFETY PRECAUTIONS IN PLACE. CALL LIGHT WITHIN REACH. WILL CONTINUE TO MONITOR.
[2021-04-19 08:00] VITALS: BP 118/78
[2021-04-19] MEDS: DOCUSATE SODIUM 100 MG GELCAP PO SCH (09:00)
[2021-04-19] MEDS: SENNA 8.6 MG TAB PO SCH (09:00)
[2021-04-19] MEDS: ENOXAPARIN 30 MG/0.3 ML SYR SUBQ SCH (09:48)
--- NOTE | 2021-04-19 10:00 | NUR ---
ALL SCHEDULED MEDS GIVEN. PT IS STABLE. NO DISTRESS NOTED. WILL CONTINUE TO MONITOR
[2021-04-19 10:44] LABS: BASOPHILS % (AUTO) 0.2 % (0.0-2.0); EOSINOPHILS # (AUTO) 0.1 K/uL (0-0.4); EOSINOPHILS % (AUTO) 0.4 % (0.0-4.0); HEMATOCRIT 22.6 % (36-52); HEMOGLOBIN 7.7 g/dL (12.0-18.0); LYMPHOCYTES # (AUTO) 1.1 K/uL (2.0-11.5); LYMPHOCYTES % (AUTO) 7.3 % (20.5-51.1); MEAN CORPUSCULAR HEMOGLOBIN 32 pg (27-31); MEAN CORPUSCULAR HGB CONC 34 g/dL (33-37); MEAN CORPUSCULAR VOLUME 94.8 fL (80-94); MONOCYTES % (AUTO) 7.1 % (1.7-9.3); NEUTROPHILS # (AUTO) 12.2 K/uL (1.8-7.7); PLATELET COUNT (AUTO) 540 K/uL (140-450); RED BLOOD CELL COUNT(AUTO) 2.38 MIL/uL (4.20-6.10); WHITE BLOOD COUNT (AUTO) 14.4 K/uL (4.8-10.8)
[2021-04-19 11:19] LABS: ANION GAP 14.3 (8-16); CARBON DIOXIDE 23.1 mmol/L (21-32); CREATININE 3.5 mg/dL (0.6-1.3); POTASSIUM 3.4 mmol/L (3.5-5.1)
[2021-04-19 12:00] VITALS: BP 151/80
--- NOTE | 2021-04-19 12:35 | NUR ---
BLOOD GLUCOSE CHECK WAS 262. ADMINISTERED 6 UNITS OF INSULIN SQ PER MD ORDERED.
--- NOTE | 2021-04-19 16:00 | NUR ---
REMOVED RIJ MICHAEL CATH AND CHANGED SURGICAL DRESSING. NO DRAINAGE NOTED IN DRESSING. C/D/I.
--- NOTE | 2021-04-19 16:30 | NUR ---
RECEIVED NEW ORDERS TO REMOVE YANG DRAIN FROM DR. TOVAR.
--- NOTE | 2021-04-19 17:21 | NUR ---
YANG DRAIN REMOVED. CLEANED AREA WITH NS AND COVERED WITH DRESSING. NO DRAINAGE WAS NOTED. C/D/I DRESSING.
[2021-04-19] MEDS ORDERED: AMOX-999 PO (17:56)
[2021-04-19] MEDS ORDERED: DOCU-299 PO (17:56)
--- NOTE | 2021-04-19 17:57 | NUR ---
BLOOD GLUCOSE CHECK WAS 266. ADMINISTERED 6 UNITS OF INSULIN SQ PER MD ORDERED.
--- NOTE | 2021-04-19 18:00 | NUR ---
PATIENT REFUSED TO TAKE PHOTOS OF SURGICAL WOUNDS. THERE ARE FOUR SURGICAL SITES WITH STITCHES. INTACT AND NO DRAINAGE NOTED. YANG DRAIN AREA IS COVERED WITH DRESSING. C/D/I.
[2021-04-19 18:34] VITALS: BP 147/78
[2021-04-19] MEDS ORDERED: ACET-9525 PO (19:11)
[2021-04-19] MEDS ORDERED: ACET-9527 PO (19:21)
--- NOTE | 2021-04-19 19:30 | NUR ---
ENDORSED TO OPERATION SPECIALIST NURSE FOR CONTINUITY OF CARE. PT IS STABLE.
--- NOTE | 2021-04-19 20:03 | NUR ---
PT DISCHARGED. ACCOMPANIED PT TO LOBBY VIA WHEELCHAIR. PT IN STABLE CONDITION.
== END 2021-04-19 19:45 | disposition home health service (06) | DRG 710 ==
LOC: MED 18:42 → MTU 04-06 08:04
PROVIDERS: ADMIT Hospitalist; ATTEND Hospitalist
PROC: 0F798DZ Dilation of Common Bile Duct with Intraluminal Device, Via Natural or Artificial Opening Endoscopic (ICD-10-PCS; 2021-04-08)
PROC: BF141ZZ Fluoroscopy of Gallbladder, Bile Ducts and Pancreatic Ducts using Low Osmolar Contrast (ICD-10-PCS; 2021-04-08)
PROC: 02HV33Z Insertion of Infusion Device into Superior Vena Cava, Percutaneous Approach (ICD-10-PCS; principal; 2021-04-10)
PROC: B548ZZA Ultrasonography of Superior Vena Cava, Guidance (ICD-10-PCS; 2021-04-10)
PROC: 5A1D70Z Performance of Urinary Filtration, Intermittent, Less than 6 Hours Per Day (ICD-10-PCS; 2021-04-10)
PROC: 5A1D70Z Performance of Urinary Filtration, Intermittent, Less than 6 Hours Per Day (ICD-10-PCS; 2021-04-11)
PROC: 0FT44ZZ Resection of Gallbladder, Percutaneous Endoscopic Approach (ICD-10-PCS; 2021-04-12)
PROC: 5A1D70Z Performance of Urinary Filtration, Intermittent, Less than 6 Hours Per Day (ICD-10-PCS; 2021-04-14)
DX: A41.9 Sepsis, unspecified organism (principal); N17.0 Acute kidney failure with tubular necrosis; K85.10 Biliary acute pancreatitis without necrosis or infection; E87.1 Hypo-osmolality and hyponatremia; E83.51 Hypocalcemia; R18.8 Other ascites; R65.20 Severe sepsis without septic shock; Z20.822 Contact with and (suspected) exposure to COVID-19; E11.65 Type 2 diabetes mellitus with hyperglycemia; R74.01 Elevation of levels of liver transaminase levels; K57.30 Diverticulosis of large intestine without perforation or abscess without bleeding; E80.6 Other disorders of bilirubin metabolism; E66.8 Other obesity; E87.5 Hyperkalemia; Z68.41 Body mass index [BMI] 40.0-44.9, adult
CPT/HCPCS: 36415; 71045; 74330; 76705; 78445; 80048; 80053; 80076; 80305; 81001; 82374; 82948; 83605; 83690; 83735; 84100; 84300; 84484; 85025; 85610; 85730; 86140; 86592; 86706; 86803; 87040; 87070; 87075; 87081; 87086; 87205; 87340; 88304; 93005; 96361; 96365; 96376; 99291; 99292; C1887; J0330; J0610; J0696; J1170; J1200; J1644; J1650; J1815; J1940; J2001; J2250; J2270; J2405; J2543; J2704; J3010; J3490; J7030; J7060; Q0092

== ENCOUNTER 2021-04-22 04:19 | Inpatient (IN) | payer MEDICAID, SELFPAY ==
[~2021-04-22] VITALS: Ht 170.2 cm; Wt 99.8 kg
[~2021-04-22 04:19] MED LIST: ACET-9525 PO; ACET-9527 PO; AMOX-999 PO; DOCU-299 PO
[2021-04-22 04:26] VITALS: BP 153/61
--- NOTE | 2021-04-22 04:26 | NUR ---
TO BED AMBULATORY
[2021-04-22] MEDS ORDERED: NACL 0.9% 1,000 ML IV ONE ×2 (05:20→06:40)
[2021-04-22] MEDS ORDERED: ONDANSETRON 4 MG/2 ML VIAL IVP ONE (05:20)
[2021-04-22 06:12] LABS: HEMATOCRIT 23.7 % (36-52); HEMOGLOBIN 7.7 g/dL (12.0-18.0); MEAN CORPUSCULAR HEMOGLOBIN 31 pg (27-31); MEAN CORPUSCULAR HGB CONC 32 g/dL (33-37); PLATELET COUNT (AUTO) 602 K/uL (140-450); RED BLOOD CELL COUNT(AUTO) 2.47 MIL/uL (4.20-6.10); RED CELL DISTRIBUTION WIDTH 14.4 % (11.6-13.7)
[2021-04-22 06:27] LABS: APPEARANCE,URINE CLEAR (CLEAR); BILIRUBIN,URINE NEGATIVE (NEGATIVE); BLOOD, URINE 1+ (NEGATIVE); COLOR,URINE YELLOW (YELLOW); LEUKOCYTE ESTERASE ,URINE NEGATIVE (NEGATIVE); NITRITE, URINE NEGATIVE (NEGATIVE); UGLUCOSE 3+ (NEGATIVE)
--- NOTE | 2021-04-22 06:30 | NUR ---
pt throwing up at bedside.pt asked for ice chips but was withtheld to see if medication works. pt provided emesis bag
[2021-04-22 06:35] LABS: RBC,URINE 0-5 /HPF (0-5); WBC,URINE 0-5 /HPF (0-5)
[2021-04-22 06:36] LABS: PROTHROMBIN TIME 12.8 secs (10.8-13.4)
[2021-04-22 06:37] LABS: WHITE BLOOD COUNT (AUTO) 29.1 K/uL (4.8-10.8)
[2021-04-22 06:38] LABS: ALBUMIN 2.3 g/dL (3.4-5.0); ANION GAP 20.4 (8-16); CARBON DIOXIDE 22.6 mmol/L (21-32); CREATININE 2.7 mg/dL (0.6-1.3); LYMPHOCYTES % (MANUAL) 1 % (20-46); MONOCYTES % (MANUAL) 1 % (5-12); TOTAL BILIRUBIN 0.9 mg/dL (0.0-1.0)
[2021-04-22] MEDS ORDERED: MORPHINE SULFATE 4 MG/ML SYR IVP ONE (06:40)
[2021-04-22] MEDS ORDERED: PROCHLORPERAZINE 10 MG/2 ML VIAL IVP ONE (06:40)
[2021-04-22] MEDS ORDERED: metroNIDAZOLE 500 MG/NS PREMIX 100 ML IV ONE (06:45)
--- NOTE | 2021-04-22 06:54 | NUR ---
45 y/o m bib self with c/o nonstop vomiting and abd pain. pt was seen here on 04/06/21 for abd pain. Chaparrita laparscopy was performed and d/c was on 04/19/21. pt c/o since then he has had pain and no meds were prescribed. pt went to go buy tylenol otc. pt has been taking amoxicillin but claims his blood sugar is always high. pt upset that we did not prescribe insulin for him even though he claims he is not diabetic. pmh: acute cholelithiasis
--- NOTE | 2021-04-22 07:45 | NUR ---
received pt in [place] aox4. denies pain or discomfort, states relief from original symptoms. iv fluids infusing and antibiotics per order. tolerating well.
[2021-04-22] MEDS ORDERED: cefTRIAXone 1,000 MG VIAL ONE (07:51)
[2021-04-22] MEDS ORDERED: POTASSIUM CHLORIDE 10 MEQ TABER PO PRN (09:40)
[2021-04-22] MEDS ORDERED: ONDANSETRON 4 MG/2 ML VIAL IVP PRN (09:40)
[2021-04-22] MEDS ORDERED: ACETAMINOPHEN 325 MG TAB PO PRN (09:40)
[2021-04-22] MEDS ORDERED: MAG SULF 2000 MG/WATER PREMIX 50 ML IV PRN (09:40)
[2021-04-22] MEDS ORDERED: KCL 20 MEQ/WATER INJ PREMIX 200 ML IV PRN (09:40)
[2021-04-22] MEDS ORDERED: DEXTROSE 50% 50 ML SYR IVP PRN (09:45)
[2021-04-22] MEDS ORDERED: MORPHINE SULFATE 2 MG/ML SYR IVP PRN (09:50)
[2021-04-22] MEDS: NACL 0.9% 1,000 ML IV SCH ×3 (10:30→20:18)
--- NOTE | 2021-04-22 11:00 | NUR ---
pt c/o abdominal pain medicated per order. tolerated well. nad.
[2021-04-22] MEDS: PIPERACILLIN/TAZOBACTAM 2.25 GM in DEXTROSE 5% 50 ML IV SCH ×2 (12:00→19:51)
[2021-04-22] MEDS: BLOOD GLUCOSE MONITORING 1 DEV DEV FS SCH ×3 (12:10→21:30)
[2021-04-22] MEDS: INSULIN LISPRO SLIDING SCALE 100 UNITS/ML VIAL SUBQ PRN ×2 (12:53→22:01)
--- NOTE | 2021-04-22 14:25 | NUR ---
bs taken per pts request [phone], paged dr umanzor to make aware of elevated bs, pt remains npo.
[2021-04-22] MEDS ORDERED: MORPHINE SULFATE 4 MG/ML SYR ONE (14:38)
[2021-04-22] MEDS ORDERED: INSULIN LISPRO 100 UNITS/ML VIAL SUBQ SCH (15:00)
[2021-04-22] MEDS: MORPHINE SULFATE 4 MG/ML SYR IVP PRN ×2 (15:07→20:19)
--- NOTE | 2021-04-22 17:50 | NUR ---
DR BENITEZ AT BEDSIDE FOR EVAL.
--- NOTE | 2021-04-22 18:15 | NUR ---
Assumed care of patient at this time.
--- NOTE | 2021-04-22 19:31 | NUR ---
Pt report given to KARLIE Dumont. Transfer of care at this time.
[2021-04-22] MEDS ORDERED: PIPERACILLIN/TAZOBACTAM 2.25 GM VIAL IV ONE ×2 (19:41→23:40)
[2021-04-22] MEDS ORDERED: INSULIN LANTUS 100 UNITS/ML 10 ML VIAL SUBQ SCH (21:00)
--- NOTE | 2021-04-22 21:02 | NUR ---
Patient will be admitted to care of DR BENITEZ. Admited to TELE. Will go to room 106A. Belongings list completed. Report to GILBERTO ZIEGLER.
[2021-04-22 21:25] VITALS: BP 148/91
--- NOTE | 2021-04-22 21:30 | NUR ---
RECEIVED PT FROM ER NURSE VIA MONSE FOR CONTINUITY OF CARE.PT A/A/O. ON ROOM AIR.BREATHING EQUAL AND UNLABORED. WITH IV ON LEFT AC G20. AFEBRILE, SKIN WARM, DRY AND INTACT. ST ON TELE,HR 121. PT COMPLAINING OF ABDOMINAL PAIN. PT HAS NO OTHER COMPLAINS. NO S/SX OF RESPIRATORY DISTRESS. MRSA SWAB DONE.ORIENTED TO ROOM AND CALL LIGHT. ALL PRECAUTIONS IN PLACE.CALL LIGHT WITHIN REACH. WILL CONTINUE TO MONITOR.
[2021-04-22] MEDS: HYDROcodone/APAP 5/325 MG 1 TAB TAB PO PRN (22:21)
[2021-04-23] VITALS: BP 145/74
--- NOTE | 2021-04-23 | NUR ---
SCHEDULED ANTIBIOTICS GIVEN. PT TOLERATED WELL. WILL CONTINUE TO MONITOR.
[2021-04-23] MEDS: PIPERACILLIN/TAZOBACTAM 2.25 GM in DEXTROSE 5% 50 ML IV SCH ×4 (00:04→18:04)
[2021-04-23] MEDS: NACL 0.9% 1,000 ML IV SCH ×5 (00:40→21:57)
[2021-04-23] MEDS: MORPHINE SULFATE 4 MG/ML SYR IVP PRN ×3 (01:05→19:53)
--- NOTE | 2021-04-23 01:10 | NUR ---
PT COMPLAINED OF 9/10 ABDOMINAL PAIN. PRN PAIN MEDICATION GIVEN. PT TOLERATED WELL. WILL CONTINUE TO MONITOR.
[2021-04-23 04:00] VITALS: BP 146/82
[2021-04-23] MEDS: SIMETHICONE 80 MG TAB.CHEW PO PRN (04:05)
[2021-04-23] MEDS ORDERED: PIPERACILLIN/TAZOBACTAM 2.25 GM VIAL IV ONE (05:01)
--- NOTE | 2021-04-23 05:15 | NUR ---
PT COMPLAINED OF PAIN. PRN PAIN MEDICATION GIVEN.PT TOLERATED WELL.
[2021-04-23] MEDS: BLOOD GLUCOSE MONITORING 1 DEV DEV FS SCH ×4 (06:00→21:40)
[2021-04-23] MEDS: INSULIN LISPRO SLIDING SCALE 100 UNITS/ML VIAL SUBQ PRN ×3 (06:21→17:15)
--- NOTE | 2021-04-23 07:03 | NUR ---
PT ASLEEP. BREATHING EQUAL AND UNLABORED. NO S/SX OF DISTRESS. WILL CONTINUE TO MONITOR.
--- NOTE | 2021-04-23 07:04 | NUR ---
PT IS STABLE. NO ACUTE EVENTS THROUGHOUT THE NIGHT.NO S/SX OF DISTRESS OF THIS MOMENT.ALL NEEDS ATTENDED. ALL PRECAUTIONS IN PLACE. WILL ENDORSE TO AM SHIFT NURSE.
[2021-04-23 07:11] LABS: ANION GAP 13.3 (8-16); CARBON DIOXIDE 23.8 mmol/L (21-32); CREATININE 2.4 mg/dL (0.6-1.3); MAGNESIUM 1.9 mg/dL (1.8-2.4); POTASSIUM 4.1 mmol/L (3.5-5.1); TOTAL BILIRUBIN 0.4 mg/dL (0.0-1.0)
--- NOTE | 2021-04-23 07:39 | NUR ---
HANDOFF REPORT RECEIVED FROM PM SHIFT KARLIE MADDEN. PT. ALERT,ORIENTED, STABLE ON ROOM AIR. NO DISTRESS NOTED. ALL SAFETY MEASURES IN PLACE. CALL LIGHT WITHIN REACH. WILL CONTINUE TO MONITOR THE PT.
[2021-04-23 08:00] VITALS: BP 132/84
[2021-04-23 08:35] LABS: BASOPHILS % (AUTO) 0.1 % (0.0-2.0); EOSINOPHILS % (AUTO) 0.1 % (0.0-4.0); LYMPHOCYTES # (AUTO) 0.7 K/uL (2.0-11.5); LYMPHOCYTES % (AUTO) 3.8 % (20.5-51.1); MEAN CORPUSCULAR HEMOGLOBIN 32 pg (27-31); MEAN CORPUSCULAR HGB CONC 33 g/dL (33-37); MEAN CORPUSCULAR VOLUME 96.6 fL (80-94); MONOCYTES # (AUTO) 0.9 K/uL (0.8-1.0); MONOCYTES % (AUTO) 4.9 % (1.7-9.3); NEUTROPHILS # (AUTO) 17.1 K/uL (1.8-7.7); NEUTROPHILS % (AUTO) 91.1 % (42.2-75.2); PLATELET COUNT (AUTO) 436 K/uL (140-450); RED BLOOD CELL COUNT(AUTO) 1.93 MIL/uL (4.20-6.10); RED CELL DISTRIBUTION WIDTH 15.1 % (11.6-13.7); WHITE BLOOD COUNT (AUTO) 18.8 K/uL (4.8-10.8)
[2021-04-23] MEDS ORDERED: ENOXAPARIN 40 MG/0.4 ML SYR SUBQ SCH (09:00)
[2021-04-23] MEDS: ENOXAPARIN 30 MG/0.3 ML SYR SUBQ SCH (09:00)
--- NOTE | 2021-04-23 09:30 | NUR ---
LOVENOX HELD FOR SCHEDULED PROCEDURE TODAY.
--- NOTE | 2021-04-23 10:00 | NUR ---
PT.TOOK TO THE RADIOLOGY DEPARTMENT FOR PROCEDURE . PT. STABLE. AND NOT IN ANY DISTRESS.
[2021-04-23 10:15] LABS: HEMATOCRIT 18.6 % (36-52); HEMOGLOBIN 6.2 g/dL (12.0-18.0)
--- NOTE | 2021-04-23 10:16 | NUR ---
PATIENT HAS BEEN SCREENED AND CATEGORIZED MODERATE NUTRITION RISK. PATIENT WILL BE SEEN WITHIN 3-5 DAYS OF ADMISSION. / KATHRYN ZARAGOZA RD
--- NOTE | 2021-04-23 10:35 | NUR ---
RECEIVED CALL FROM LAB FOR THIS PT. HAS CRITICAL LOW HGB 6.2/HCT 18.6. NOTIFIED DR. BENITEZ VIA MESSAGE.WILL FOLLOW UP WITH MD'S ORDER.
[2021-04-23] MEDS ORDERED: fentaNYL citrate 0.05 MG/ML VIAL ONE ×2 (10:44→10:45)
[2021-04-23] MEDS ORDERED: MIDAZOLAM 2 MG/2 ML VIAL ONE (10:45)
--- NOTE | 2021-04-23 11:15 | NUR ---
PT. BACK TO UNIT AFTER PROCEDURE (CT BIOPSY/ASP. CATH PLACEMENT). PT. ALERT,ORIENTED. VERBAL RESPONCE. NOT IN DISTRESS ON ROOM AIR.. WILL CONTINUE TO MONITOR THE PT.
[2021-04-23 12:00] VITALS: BP 140/77
--- NOTE | 2021-04-23 12:02 | NUR ---
RECIVED ORDER FROM DR. BENITEZ TO TRANSFUSE PRBC I UNIT TODAY. WILL CARRYOUT ORDER AND CONT. TO MONITOR THE PT.
[2021-04-23] MEDS ORDERED: MIDAZOLAM 2 MG/2 ML VIAL IVP ONE ×2 (12:40→12:55)
[2021-04-23] MEDS ORDERED: fentaNYL citrate 0.05 MG/ML VIAL IVP ONE (12:55)
--- NOTE | 2021-04-23 14:30 | NUR ---
PT. COMFORTABLY SLEEPING IN THE BED. NO S/S OF PAIN NOTED AT THIS TIME. NO ANY DISTRESS NOTED. WILL CONTINUE TO MONITOR THE PT.
[2021-04-23 16:00] VITALS: BP 133/69
--- NOTE | 2021-04-23 16:17 | NUR ---
NEED CONSENT FROM MD. MESSAGE WAS SENT TO DR. BENITEZ. . REPLIED , HE WILL BE HERE TO SIGN THE CONSENT. WILL FOLLOW UP.
--- NOTE | 2021-04-23 17:00 | NUR ---
DR. BENITEZ HERE AT THE UNIT, CONSENT SIGENED BY AND PT.
--- NOTE | 2021-04-23 18:00 | NUR ---
PT. ALERT, AWKE. STABLE ON ROOM AIR. NO DISTRESS NOTED. WILL CONTINUE TO MONITOR THE PT.
--- NOTE | 2021-04-23 19:00 | NUR ---
VITALS CHEKED PRIOR TO GET THE BLOOD . V/S WNL. PT. ALERT. STABLE NOT IN DISTRESS. PRBC STARTED VIA PIV. . PT. AFEBRILE. CLOSELY MONITORING THE PT. WILL ENDORSE TO PM SHIFT RN TO MONITOR THE PT. DURING BT. AND CONTINUITY OF CARE.
--- NOTE | 2021-04-23 19:15 | NUR ---
ENDORSED REPORT TO PM SHIFT KARLIE MADDEN. CONTINUE INFUSING PRBC. PT. STABLE.
[2021-04-23 20:00] VITALS: BP 128/77
--- NOTE | 2021-04-23 20:00 | NUR ---
RECEIVED PT FROM DAY SHIFT NURSE FOR CONTINUITY OF CARE.PT A/A/O. ON ROOM AIR.BREATHING EQUAL AND UNLABORED. WITH IV ON LEFT AC G20 RUNNING NS @ 200 AND G20 L HAND RUNNING 1UNIT PRBC. AFEBRILE, SKIN WARM, DRY AND INTACT. ST ON TELE,HR 111. PT COMPLAINING OF ABDOMINAL PAIN. PT HAS NO OTHER COMPLAINS. NO S/SX OF RESPIRATORY DISTRESS. . ALL PRECAUTIONS IN PLACE.CALL LIGHT WITHIN REACH. WILL CONTINUE TO MONITOR.
[2021-04-23] MEDS: INSULIN LANTUS 100 UNITS/ML 10 ML VIAL SUBQ SCH (21:00)
[2021-04-23] MEDS: HYDROcodone/APAP 5/325 MG 1 TAB TAB PO PRN (22:18)
--- NOTE | 2021-04-23 22:30 | NUR ---
BLOOD TRANSFUSION DONE. PT TOLERATED WELL.NO DISTRESS NOTED. WILL CONTINUE TO MONITOR.
[2021-04-24] VITALS: BP 140/72
--- NOTE | 2021-04-24 00:30 | NUR ---
SCHEDULED ANTIBIOTICS GIVEN. PT TOLERATED WELL. WILL CONTINUE TO MONITOR.
[2021-04-24] MEDS: PIPERACILLIN/TAZOBACTAM 2.25 GM in DEXTROSE 5% 50 ML IV SCH ×4 (00:59→17:10)
[2021-04-24] MEDS: NACL 0.9% 1,000 ML IV SCH ×2 (01:40→06:10)
--- NOTE | 2021-04-24 01:59 | NUR ---
PT ASLEEP. BREATHING EQUAL AND UNLABORED. NO S/SX OF DISTRESS. WILL CONTINUE TO MONITOR.
[2021-04-24] MEDS: MORPHINE SULFATE 4 MG/ML SYR IVP PRN ×3 (02:11→14:43)
--- NOTE | 2021-04-24 02:25 | NUR ---
PT COMPLAINED OF 9/10 ABDOMINAL PAIN. PRN PAIN MEDICATION GIVEN. PT TOLERATED WELL. WILL CONTINUE TO MONITOR.
[2021-04-24 04:00] VITALS: BP 146/88
[2021-04-24] MEDS: INSULIN LISPRO SLIDING SCALE 100 UNITS/ML VIAL SUBQ PRN ×4 (06:04→20:34)
[2021-04-24] MEDS: BLOOD GLUCOSE MONITORING 1 DEV DEV FS SCH ×4 (06:23→20:31)
[2021-04-24 06:27] LABS: ALBUMIN 1.8 g/dL (3.4-5.0); ANION GAP 12.1 (8-16); CARBON DIOXIDE 25.9 mmol/L (21-32); CREATININE 2.1 mg/dL (0.6-1.3); MAGNESIUM 1.8 mg/dL (1.8-2.4); TOTAL BILIRUBIN 0.6 mg/dL (0.0-1.0)
[2021-04-24 06:28] LABS: BASOPHILS % (AUTO) 0.3 % (0.0-2.0); EOSINOPHILS # (AUTO) 0.2 K/uL (0-0.4); EOSINOPHILS % (AUTO) 1.4 % (0.0-4.0); LYMPHOCYTES # (AUTO) 0.8 K/uL (2.0-11.5); MEAN CORPUSCULAR HEMOGLOBIN 32 pg (27-31); MEAN CORPUSCULAR HGB CONC 33 g/dL (33-37); MEAN CORPUSCULAR VOLUME 96.3 fL (80-94); MONOCYTES # (AUTO) 0.8 K/uL (0.8-1.0); MONOCYTES % (AUTO) 6.9 % (1.7-9.3); NEUTROPHILS # (AUTO) 9.9 K/uL (1.8-7.7); NEUTROPHILS % (AUTO) 84.4 % (42.2-75.2); PLATELET COUNT (AUTO) 347 K/uL (140-450); RED BLOOD CELL COUNT(AUTO) 2.03 MIL/uL (4.20-6.10); RED CELL DISTRIBUTION WIDTH 15.2 % (11.6-13.7); WHITE BLOOD COUNT (AUTO) 11.7 K/uL (4.8-10.8)
[2021-04-24 06:42] LABS: HEMATOCRIT 19.6 % (36-52); HEMOGLOBIN 6.5 g/dL (12.0-18.0)
--- NOTE | 2021-04-24 06:48 | NUR ---
CRITICAL LAB VALUE HGB 6.5/HCT 19.6 RECEIVED FROM LAB. MESSAGED DOCTOR OF THE RESULT, AWAITING REPLY.
--- NOTE | 2021-04-24 06:49 | NUR ---
PT IS STABLE. NO ACUTE EVENTS THROUGHOUT THE NIGHT. NO S/SX OF DISTRESS. ALL NEEDS MET. ALL SAFETY PRECAUTIONS IN PLACE. WILL ENDORSE TO AM SHIFT NURSE.
--- NOTE | 2021-04-24 07:30 | NUR ---
RECEIVED REPORT FROM BEHAVIORAL MODIFICATION ASSISTANT NURSE FOR CONTINUITY OF CARE, POC DISCUSSED. PT IS RESTING IN BED, ON ROOM AIR. EDUCATED ON NEEDING TO COLLECT A STOOL SAMPLE. REPORTING OF PAIN, WILL MEDICATE PER MD ORDER. ALL SAFETY MEASURES IN PLACE, CALL LIGHT WITHIN REACH. WILL CONTINUE TO MONITOR.
[2021-04-24 08:00] VITALS: BP 128/94
[2021-04-24] MEDS: ENOXAPARIN 30 MG/0.3 ML SYR SUBQ SCH (08:07)
[2021-04-24] MEDS: PANTOPRAZOLE 40 MG INJ VIAL IVP SCH ×2 (08:07→20:32)
[2021-04-24] MEDS: LACTATED RINGERS 1,000 ML IV SCH ×3 (08:40→22:00)
--- NOTE | 2021-04-24 10:32 | NUR ---
PT STATED HE WANTED TO EAT SOMETHING BEFORE ANOTHER BLOOD TRANSFUSION. LIQUIDS PROVIDED TO PT PER MD ORDER. WILL TRANSFUSE AFTER ADMINISTRATION
[2021-04-24 12:00] VITALS: BP 139/84
--- NOTE | 2021-04-24 12:15 | NUR ---
BLOOD TRANSFUSION STARTED, PRE VITAL SIGNS OBTAINED. PT STABLE. ALL QUESTIONS HAVE BEEN ANSWERED. ALL SAFETY MEASURES IN PLACE, CALL LIGHT WITHIN REACH. WILL CONTINUE TO MONITOR.
--- NOTE | 2021-04-24 15:43 | NUR ---
BLOOD TRANSFUSION HAS FINISHED, POST INFUSION VITAL SIGNS TAKEN. PT TOLERATED ADMINISTRATION. PT IS STABLE. PT REQUESTED TO BE DISCONNECTED FROM IVS AND STATES HE MAY NOT WANT TO DO THE SECOND INFUSION UNTIL AFTER DINNER. STATED HE WILL LET ME KNOW IF HE IS WILL TO DO IT EARLIER.
[2021-04-24 16:00] VITALS: BP 127/81
--- NOTE | 2021-04-24 16:00 | NUR ---
PT AMBULATING AROUND NURSING STATION WITH MASK ON AND IN STABLE CONDITION.
[2021-04-24] MEDS: AMYLASE/LIPASE/PROTEASE 1 CAPDR PO SCH (17:09)
[2021-04-24] MEDS: FERROUS SULFATE 325 MG TABEC PO SCH (17:09)
--- NOTE | 2021-04-24 18:12 | NUR ---
BHAVESH IV ANTIBIOTICS ADMINISTERED PER MD ORDER, CULTURE OBTAINED BY PIGGY TAIL. PT STATES HE WANTS TO START THE BLOOD TRANSFUSION AFTER DINNER, HE KEEPS WANTING TO HAVE A BOWEL MOVEMENT AND DOES NOT WANT TO BE HOOKED UP TO THE IV POLE WHEN HE NEEDS TO GO.
--- NOTE | 2021-04-24 18:37 | NUR ---
LR FLUIDS RESTARTED. ALL NEEDS HAVE BEEN MET FOR PATIENT. POC WILL BE ENDORSED TO CONCIERGE NURSE.
--- NOTE | 2021-04-24 19:45 | NUR ---
RECEIVED BEDSIDE REPORT FROM DAY SHIFT RN FOR CONTINUITY OF CARE. PT IS AWAKE IN BED. NOT IN ANY DISTRESS. BREATHING RHYTHMIC AND UNLABORED. IVF RUNNING PER MD ORDER. CALL LIGHT WITHIN REACH. ALL SAFETY MEASURES TAKEN. WILL CONTINUE TO MONITOR THE PT.
[2021-04-24 20:00] VITALS: BP 145/109
--- NOTE | 2021-04-24 20:15 | NUR ---
PT COMPLAINING OF ABD PAIN 11/16. NO OTHER COMPLAINS. WILL MEDICATE PT PER MD ORDER. CALL LIGHT WITHIN REACH. ALL SAFETY MEASURES TAKEN. WILL CONTINUE TO MONITOR THE PT.
[2021-04-24] MEDS: INSULIN LANTUS 100 UNITS/ML 10 ML VIAL SUBQ SCH (20:33)
--- NOTE | 2021-04-24 20:37 | NUR ---
ALL DUE MEDS GIVEN. NO ADVERSE REACTION NOTED. WILL CONTINUE TO MONITOR THE PT.
--- NOTE | 2021-04-24 22:55 | NUR ---
2ND UNIT OF BLOOD TRANSFUSION STARTED. PRE VITALS TAKEN. ALL QUESTIONS ANSWERED. MONITORING PT FOR ANY ADVERSE EFFECT. VSS. ALL SAFETY MEASURES TAKEN. WILL CONTINUE TO MONITOR THE PT.
[2021-04-25] VITALS (7 sets, daily range): BP systolic 138–154; BP diastolic 78–100
[2021-04-25] MEDS: MORPHINE SULFATE 4 MG/ML SYR IVP PRN ×3 (00:06→17:12)
--- NOTE | 2021-04-25 02:22 | NUR ---
BLOOD TRANSFUSION FINISHED. NO BLOOD TRANSFUSION REACTION NOTED. ALL SAFETY MEASURES TAKEN. WILL CONTINUE TO MONITOR THE PT.
[2021-04-25] MEDS: LACTATED RINGERS 1,000 ML IV SCH ×3 (04:40→21:46)
[2021-04-25] MEDS: BLOOD GLUCOSE MONITORING 1 DEV DEV FS SCH ×4 (06:30→21:16)
[2021-04-25] MEDS: PIPERACILLIN/TAZOBACTAM 2.25 GM in DEXTROSE 5% 50 ML IV SCH ×6 (06:32→23:37)
[2021-04-25 06:41] LABS: ALBUMIN 1.8 g/dL (3.4-5.0); ANION GAP 12.5 (8-16); CREATININE 1.7 mg/dL (0.6-1.3); MAGNESIUM 1.5 mg/dL (1.8-2.4); POTASSIUM 3.5 mmol/L (3.5-5.1); TOTAL BILIRUBIN 0.7 mg/dL (0.0-1.0)
[2021-04-25 06:47] LABS: BASOPHILS % (AUTO) 0.1 % (0.0-2.0); EOSINOPHILS # (AUTO) 0.2 K/uL (0-0.4); EOSINOPHILS % (AUTO) 1.7 % (0.0-4.0); HEMATOCRIT 23.5 % (36-52); HEMOGLOBIN 8.1 g/dL (12.0-18.0); LYMPHOCYTES # (AUTO) 0.7 K/uL (2.0-11.5); LYMPHOCYTES % (AUTO) 6.8 % (20.5-51.1); MEAN CORPUSCULAR HEMOGLOBIN 32 pg (27-31); MEAN CORPUSCULAR HGB CONC 34 g/dL (33-37); MEAN CORPUSCULAR VOLUME 93.5 fL (80-94); MONOCYTES # (AUTO) 0.7 K/uL (0.8-1.0); MONOCYTES % (AUTO) 6.3 % (1.7-9.3); NEUTROPHILS # (AUTO) 9.3 K/uL (1.8-7.7); NEUTROPHILS % (AUTO) 85.1 % (42.2-75.2); PLATELET COUNT (AUTO) 293 K/uL (140-450); RED BLOOD CELL COUNT(AUTO) 2.51 MIL/uL (4.20-6.10); RED CELL DISTRIBUTION WIDTH 15.1 % (11.6-13.7); WHITE BLOOD COUNT (AUTO) 10.9 K/uL (4.8-10.8)
[2021-04-25] MEDS: HYDROcodone/APAP 5/325 MG 1 TAB TAB PO PRN ×2 (07:09→23:44)
--- NOTE | 2021-04-25 07:30 | NUR ---
ENDORSED PT TO DAY SHIFT RN FOR CONTINUITY OF CARE. PT IS STABLE.
[2021-04-25] MEDS: FERROUS SULFATE 325 MG TABEC PO SCH ×2 (08:00→16:32)
[2021-04-25] MEDS: AMYLASE/LIPASE/PROTEASE 1 CAPDR PO SCH ×3 (08:00→16:32)
--- NOTE | 2021-04-25 08:00 | NUR ---
RECEIVED PT FROM [facility] FOR CONTINUITY OF CARE. PT A/O X4. NO SOB OR RESPIRATORY DISTRESS. ON RA. R LATERAL TO RUQ DRESSING C/D/I. DRAINAGE NOTED WITH 75 ML AND EMPTIED. ON FULL LIQUID DIET. TOLERATING WELL. IVF INFUSING. PT STATES TENDERNESS AROUND MID ABDOMEN HOWEVER, REFUSES PAIN MEDS AT THIS TIME. NEEDS ALL MET. SAFE PRECAUTIONS IN PLACE. WILL MONITOR CLOSELY.
[2021-04-25] MEDS: PANTOPRAZOLE 40 MG INJ VIAL IVP SCH ×2 (09:26→21:19)
[2021-04-25] MEDS: ENOXAPARIN 30 MG/0.3 ML SYR SUBQ SCH (09:27)
[2021-04-25] MEDS: INSULIN LISPRO SLIDING SCALE 100 UNITS/ML VIAL SUBQ PRN ×2 (11:58→21:22)
--- NOTE | 2021-04-25 12:00 | NUR ---
PT C/O HAVING TO IV SITES ON LAC AND L HAND. REQUESTS TO DISCONTINUE THE L HAND IV. L HAND IV DISCONNECTED. L LATERAL DRESSING C/D/I WITH SCANT DRAINAGE. SURGICAL INCISION FROM PREVIOUS CHOLECYSTECTOMY WITH NO S/S OF INFECTION. FAMILY MEMBER AT BEDSIDE. DISCUSSED POC WITH FAMILY MEMBER AND PT. VERBALIZED UNDERSTANDING. DISCONNECTED PT AND RECONNECTED PT WHEN PT USES THE RESTROOM PER PT REQUEST. PT IN NO DISTRESS AT THIS TIME . NO SOB OR RESPIRATORY DISTRESS. ON RA. NEEDS ALL MET. SAFE PRECAUTIONS IN PLACE. WILL MONITOR CLOSELY.
--- NOTE | 2021-04-25 14:08 | NUR ---
04/25/21 RD INITIAL ASSESSMENT COMPLETED PLEASE REFER TO NUTRITION ASSESSMENT UNDER CARE ACTIVITY FOR ESTIMATED NUTRITIONAL NEEDS. 1. CONTINUE FULL LIQUID DIET TOLERATED 2. WHEN/IF MEDICALLY APPROPRIATE, [facility]/CARDIAC DIET TOLERATED 3. RD TO FOLLOW-UP 3-5 DAYS, MODERATE RISK KATHRYN ZARAGOZA RD
--- NOTE | 2021-04-25 15:15 | NUR ---
AT BEDSIDE. PROVIDED ITEMS FOR HYGIENE CARE PER REQUEST. PT IN NO DISTRESS. L LATERAL SIDE DRAINAGE BAG VIA NEGATIVE PRESSURE. NO SOB OR RESPIRATORY DISTRESS. DENIES FEVER. WILL MONITOR CLOSELY.
--- NOTE | 2021-04-25 18:58 | NUR ---
CLOSING: PT STABLE. NO SOB OR RESPIRATORY DISTRESS. ON RA. RR EVEN AND UNLABORED. DRAINAGE BAG ON L LATERAL-ABDOMEN DRAINING. EMPTIED 60 ML. PT REFUSES TO BE ATTACHED TO FLUIDS AT THIS TIME. DISCONNECTED PT FROM IV. NEEDS ALL MET AT THIS TIME. SAFE PRECAUTIONS IN PLACE. WILL ENDORSE CONTINUITY OF CARE TO NIGHTSHIFT.
[2021-04-25] MEDS: SIMETHICONE 80 MG TAB.CHEW PO PRN (19:57)
[2021-04-25] MEDS: INSULIN LANTUS 100 UNITS/ML 10 ML VIAL SUBQ SCH (21:21)
[2021-04-26] MEDS: SIMETHICONE 80 MG TAB.CHEW PO PRN ×2 (02:36→20:39)
[2021-04-26 04:00] VITALS: BP 150/82
[2021-04-26] MEDS: PIPERACILLIN/TAZOBACTAM 2.25 GM in DEXTROSE 5% 50 ML IV SCH ×3 (05:30→17:29)
[2021-04-26] MEDS: BLOOD GLUCOSE MONITORING 1 DEV DEV FS SCH ×4 (05:52→20:58)
[2021-04-26 06:06] LABS: BASOPHILS % (AUTO) 0.2 % (0.0-2.0); EOSINOPHILS # (AUTO) 0.1 K/uL (0-0.4); EOSINOPHILS % (AUTO) 1.1 % (0.0-4.0); HEMATOCRIT 22.3 % (36-52); HEMOGLOBIN 7.7 g/dL (12.0-18.0); LYMPHOCYTES # (AUTO) 0.7 K/uL (2.0-11.5); LYMPHOCYTES % (AUTO) 8.6 % (20.5-51.1); MEAN CORPUSCULAR HEMOGLOBIN 33 pg (27-31); MEAN CORPUSCULAR HGB CONC 35 g/dL (33-37); MEAN CORPUSCULAR VOLUME 93.6 fL (80-94); MONOCYTES # (AUTO) 0.7 K/uL (0.8-1.0); MONOCYTES % (AUTO) 8.3 % (1.7-9.3); NEUTROPHILS # (AUTO) 7.1 K/uL (1.8-7.7); NEUTROPHILS % (AUTO) 81.8 % (42.2-75.2); PLATELET COUNT (AUTO) 240 K/uL (140-450); RED BLOOD CELL COUNT(AUTO) 2.38 MIL/uL (4.20-6.10); RED CELL DISTRIBUTION WIDTH 14.8 % (11.6-13.7); WHITE BLOOD COUNT (AUTO) 8.7 K/uL (4.8-10.8)
[2021-04-26 06:18] LABS: ALBUMIN 1.7 g/dL (3.4-5.0); ANION GAP 9.8 (8-16); CARBON DIOXIDE 27.7 mmol/L (21-32); CREATININE 1.7 mg/dL (0.6-1.3); MAGNESIUM 1.6 mg/dL (1.8-2.4); POTASSIUM 3.5 mmol/L (3.5-5.1); TOTAL BILIRUBIN 0.7 mg/dL (0.0-1.0)
[2021-04-26] MEDS: INSULIN LISPRO SLIDING SCALE 100 UNITS/ML VIAL SUBQ PRN ×3 (06:30→21:01)
--- NOTE | 2021-04-26 07:20 | NUR ---
RECEIVED PT FROM NIGHT RN, PT IS ALERT AND ORIENTED , ON RA, AMBULATORY, IV LINE NOTED ON THE LAC G. 20 ON SALINE LOCK, PT HAS A N ACCORDION DRAIN ON THE LEFT MID BACK, CARRIE INTACT ON THE ABDOMINAL AREA, S/P LAPAROSCOPIC CHOLECYSTECTOMY ON 04-12-[address] TOVAR, PT DENIES PAIN AND NO SIGN OF DISTRESS NOTED, WILL CONTINUE TO MONITOR,PT.
[2021-04-26 08:00] VITALS: BP 142/81
[2021-04-26] MEDS: AMYLASE/LIPASE/PROTEASE 1 CAPDR PO SCH ×3 (08:41→16:49)
[2021-04-26] MEDS: ENOXAPARIN 30 MG/0.3 ML SYR SUBQ SCH (08:41)
[2021-04-26] MEDS: MAGNESIUM OXIDE 400 MG TAB PO PRN (08:41)
[2021-04-26] MEDS: FERROUS SULFATE 325 MG TABEC PO SCH ×2 (08:42→16:50)
--- NOTE | 2021-04-26 08:42 | NUR ---
PT WAS GIVEN THE SCHEDULED AM MEDICATIONS NOW, TOLERATED,WILL CONTINUE TO BE MONITORED.
[2021-04-26] MEDS: PANTOPRAZOLE 40 MG INJ VIAL IVP SCH ×2 (08:43→20:39)
--- NOTE | 2021-04-26 08:51 | NUR ---
DR. BENITEZ IS IN THE PT'S ROOM AND TALKING TO PT NOW AND TELLING PT THE POC AND CULTURE IS STILL PENDING RESULT. AND PT VERBALIZED UNDERSTANDING, ALSO TALKED TO PT'S BROTHER ON THE PHONE AND DISCUSSED THE PLAN OF CARE.
--- NOTE | 2021-04-26 11:49 | NUR ---
PT WAS GIVEN THE SCHEDULED MEDICATIONS NOW VIA ORAL AND IVPB, ACCORDION DRAIN EMPTIED WITH 50ML OF BROWNISH FLUID.
[2021-04-26] MEDS: MORPHINE SULFATE 4 MG/ML SYR IVP PRN (14:32)
[2021-04-26 16:00] VITALS: BP 136/91
--- NOTE | 2021-04-26 16:50 | NUR ---
PT WAS GIVEN THE SCHEDULED MEDICATIONS ORALLY NOW.
--- NOTE | 2021-04-26 17:29 | NUR ---
pt was given ivpb zosyn now.
--- NOTE | 2021-04-26 19:25 | NUR ---
ENDORSED PT TO NIGHT RN FOR CONTINUITY OF CARE. PT IS STABLE AT THIS TIME.
[2021-04-26 20:00] VITALS: BP 134/80
[2021-04-26] MEDS: INSULIN LANTUS 100 UNITS/ML 10 ML VIAL SUBQ SCH (20:54)
[2021-04-27] VITALS: BP 120/80
[2021-04-27] MEDS: HYDROcodone/APAP 5/325 MG 1 TAB TAB PO PRN ×2 (00:50→19:42)
[2021-04-27 04:00] VITALS: BP 135/83
[2021-04-27] MEDS: BLOOD GLUCOSE MONITORING 1 DEV DEV FS SCH ×4 (05:54→20:49)
[2021-04-27] MEDS: INSULIN LISPRO SLIDING SCALE 100 UNITS/ML VIAL SUBQ PRN ×2 (06:32→21:00)
--- NOTE | 2021-04-27 07:30 | NUR ---
RECEIVED REPORT FROM BARREL CHARRER NURSE. PT STABLE
[2021-04-27 07:46] LABS: BASOPHILS % (AUTO) 0.4 % (0.0-2.0); EOSINOPHILS # (AUTO) 0.1 K/uL (0-0.4); HEMATOCRIT 23.8 % (36-52); HEMOGLOBIN 8.2 g/dL (12.0-18.0); LYMPHOCYTES # (AUTO) 0.7 K/uL (2.0-11.5); LYMPHOCYTES % (AUTO) 8.7 % (20.5-51.1); MEAN CORPUSCULAR HEMOGLOBIN 32 pg (27-31); MEAN CORPUSCULAR HGB CONC 34 g/dL (33-37); MONOCYTES # (AUTO) 0.8 K/uL (0.8-1.0); NEUTROPHILS % (AUTO) 79.9 % (42.2-75.2); PLATELET COUNT (AUTO) 228 K/uL (140-450); RED BLOOD CELL COUNT(AUTO) 2.53 MIL/uL (4.20-6.10); RED CELL DISTRIBUTION WIDTH 14.6 % (11.6-13.7); WHITE BLOOD COUNT (AUTO) 7.6 K/uL (4.8-10.8)
[2021-04-27 08:00] VITALS: BP 155/94
[2021-04-27 08:06] LABS: ALBUMIN 1.9 g/dL (3.4-5.0); ANION GAP 11.5 (8-16); CARBON DIOXIDE 26.7 mmol/L (21-32); CREATININE 1.6 mg/dL (0.6-1.3); MAGNESIUM 1.3 mg/dL (1.8-2.4); POTASSIUM 3.2 mmol/L (3.5-5.1); TOTAL BILIRUBIN 0.8 mg/dL (0.0-1.0)
[2021-04-27] MEDS: AMYLASE/LIPASE/PROTEASE 1 CAPDR PO SCH ×3 (08:25→16:37)
[2021-04-27] MEDS: PANTOPRAZOLE 40 MG INJ VIAL IVP SCH ×2 (08:25→20:57)
[2021-04-27] MEDS: FERROUS SULFATE 325 MG TABEC PO SCH ×2 (08:25→16:37)
[2021-04-27] MEDS: ENOXAPARIN 30 MG/0.3 ML SYR SUBQ SCH (08:28)
[2021-04-27] MEDS: MAGNESIUM OXIDE 400 MG TAB PO PRN (08:51)
--- NOTE | 2021-04-27 10:23 | NUR ---
ADMINISTERED KDUR AND MG SUPPLEMENTS WITH MORNING MEDS. K 3.2, MG 1.3, PT TOLERATED WELL. FAMILY AT BEDSIDE. CALL LIGHT IN REACH. ALL SAFETY MEASURES IN PLACE
[2021-04-27] MEDS ORDERED: MAG SULF 2000 MG/WATER PREMIX 50 ML IV SCH (11:30)
--- NOTE | 2021-04-27 13:18 | NUR ---
PT DRAIN FLUSHED FOR PATENCY. 60 ML REMOVED BY CHARGE NURSE. NO S/S OF DISTRESS. FAMILY AT BEDSIDE. CALL LIGHT IN REACH. ALL SAFETY MEASURES IN PLACE
[2021-04-27] MEDS ORDERED: KCL 20 MEQ/WATER INJ PREMIX 100 ML IV SCH (14:00)
[2021-04-27 16:00] VITALS: BP 139/83
--- NOTE | 2021-04-27 16:37 | NUR ---
PT ATE BEFORE BG WAS CHECKED. BG ELEVATED 178, NO COVERAGE GIVEN. WILL CONTINUE TO MONITOR
--- NOTE | 2021-04-27 19:47 | NUR ---
ENDORSED PT TO CERTIFIED NOVELL ENGINEER NURSE. PT STABLE
[2021-04-27 20:44] VITALS: BP 131/75
[2021-04-27] MEDS: INSULIN LANTUS 100 UNITS/ML 10 ML VIAL SUBQ SCH (20:59)
[2021-04-28] MEDS: HYDROcodone/APAP 5/325 MG 1 TAB TAB PO PRN (03:18)
[2021-04-28 04:24] VITALS: BP 116/73
[2021-04-28] MEDS: BLOOD GLUCOSE MONITORING 1 DEV DEV FS SCH (06:06)
--- NOTE | 2021-04-28 07:46 | NUR ---
RECEIVED REPORT FROM MACHINE CELL TUBER NURSE. PT STABLE
[2021-04-28 08:08] LABS: MAGNESIUM 1.6 mg/dL (1.8-2.4); PHOSPHORUS 3.7 mg/dL (2.5-4.9)
[2021-04-28 08:29] LABS: ANION GAP 13.8 (8-16); CARBON DIOXIDE 28.8 mmol/L (21-32); CREATININE 1.4 mg/dL (0.6-1.3); POTASSIUM 3.6 mmol/L (3.5-5.1)
[2021-04-28] MEDS: ENOXAPARIN 30 MG/0.3 ML SYR SUBQ SCH (08:55)
[2021-04-28] MEDS: MAGNESIUM OXIDE 400 MG TAB PO PRN (08:55)
[2021-04-28] MEDS: PANTOPRAZOLE 40 MG INJ VIAL IVP SCH (08:55)
[2021-04-28] MEDS: FERROUS SULFATE 325 MG TABEC PO SCH (08:55)
[2021-04-28] MEDS: AMYLASE/LIPASE/PROTEASE 1 CAPDR PO SCH (08:55)
[2021-04-28] MEDS ORDERED: PANT40EC PO (10:46)
[2021-04-28] MEDS ORDERED: PAN PO (10:46)
[2021-04-28] MEDS ORDERED: ACET-9525 PO (10:46)
[2021-04-28] MEDS ORDERED: SIME80CT43 PO (10:46)
[2021-04-28] MEDS ORDERED: AMOX-1000 PO (10:46)
[2021-04-28] MEDS ORDERED: ACET-1182 PO (10:46)
[2021-04-28] MEDS ORDERED: FER325 PO (10:46)
[2021-04-28] MEDS ORDERED: METF-1243 PO (10:46)
--- NOTE | 2021-04-28 12:25 | NUR ---
PT DISCHARGED HOME WITH FAMILY. PT EDUCATED ON DRAIN EMPTYING AND WOUND CARE. PT PROVIDED PHONE NUMBER AND ADDRESS FOR DR. TOVAR FOLLOW-UP. PT PROVIDED SUPPLIES AND INSTRUCTED TO FOLLOW UP WITH CM FOR HOME HEALTH. PHYSICAL PRESCRIPTION PROVIDED FOR DM SUPPLIES. IV REMOVED, CANULA INTACT. ID BAND REMOVED. ALL PROPERTY IN POSSESSION. ALL SAFETY MEASURES IN PLACE
--- NOTE | 2021-04-29 14:12 | NUR ---
DC PLANNING: FAXED THE ORDER TO [facility] FAXED TO [facility], [facility] , [facility] AND [employer] [facility] TO FOLLOW. Addendum: 04/30/21 at 1450 by Demi Smith RN DC PLANNING: RECEIVED AN AUTH# FROM [facility] BY CAROLINE SCHAFER [id number] [facility] IS ACCEPTING PATIENT MORRIS LYN TODAY 04/30/21. NOTIFIED PT'S SON RITA [phone]
== END 2021-04-28 12:25 | disposition home health service (06) | DRG 282 ==
LOC: MED 04:19 → MTU 09:40
PROVIDERS: ADMIT Internal Medicine; ATTEND Internal Medicine
PROC: 30233N1 Transfusion of Nonautologous Red Blood Cells into Peripheral Vein, Percutaneous Approach (ICD-10-PCS; principal; 2021-04-23)
PROC: 0F9G3ZX Drainage of Pancreas, Percutaneous Approach, Diagnostic (ICD-10-PCS; 2021-04-23)
DX: K85.91 Acute pancreatitis with uninfected necrosis, unspecified (principal); N17.9 Acute kidney failure, unspecified; E87.2 Acidosis; R65.10 Systemic inflammatory response syndrome (SIRS) of non-infectious origin without acute organ dysfunction; E44.1 Mild protein-calorie malnutrition; E86.0 Dehydration; D64.9 Anemia, unspecified; E11.65 Type 2 diabetes mellitus with hyperglycemia; Z20.822 Contact with and (suspected) exposure to COVID-19; Z90.49 Acquired absence of other specified parts of digestive tract; Z68.34 Body mass index [BMI] 34.0-34.9, adult; Z79.899 Other long term (current) drug therapy
CPT/HCPCS: 36415; 71045; 75989; 80048; 80053; 81001; 82009; 82272; 82948; 83036; 83605; 83690; 83735; 84100; 84484; 85025; 85610; 85730; 86886; 86900; 86901; 86920; 87040; 87070; 87075; 87081; 87086; 87205; 93005; 96361; 96365; 96367; 96375; 99291; C9113; J0696; J0780; J1650; J1815; J2250; J2270; J2405; J2543; J3010; J3475; J3480; J3490; J7030; J7060; P9016; Q0092

== ENCOUNTER 2021-05-01 15:00 | Inpatient (IN) | payer MEDICAID, SELFPAY ==
[~2021-05-01] VITALS: Ht 157.5 cm; Wt 87.7 kg
[~2021-05-01 15:00] MED LIST changes: +ACET-1182 PO; -ACET-9527 PO; +AMOX-1000 PO; -AMOX-999 PO; +FER325 PO; +METF-1243 PO; +PAN PO; +PANT40EC PO; +SIME80CT43 PO
[2021-05-01 15:06] VITALS: BP 163/88
--- NOTE | 2021-05-01 15:25 | NUR ---
PATIENT WALKED TO BED 7
--- NOTE | 2021-05-01 15:28 | NUR ---
45/M BIB SELF C/O OF DISLOGED DRAIN TUBE X20 MINUTES AGO. STATED THAT TUBE WAS TO BE REMOVED TMRW. NO PAIN NOTED, HOME NURSE VISIT PATCHED IT UP. NKA SURGERY HX: GALLSTONES MEDS PRESCRIBED POST OP: LIPASE, METFORMIN, PROTONIX, SIMETHICONE, DOCUSATE SODIUM, AMOXILLIN PMHX: DENIES
[2021-05-01 15:43] LABS: BASOPHILS % (AUTO) 0.1 % (0.0-2.0); EOSINOPHILS % (AUTO) 0.1 % (0.0-4.0); HEMATOCRIT 25.8 % (36-52); HEMOGLOBIN 8.7 g/dL (12.0-18.0); LYMPHOCYTES % (AUTO) 6.9 % (20.5-51.1); MEAN CORPUSCULAR HEMOGLOBIN 32 pg (27-31); MEAN CORPUSCULAR HGB CONC 34 g/dL (33-37); MONOCYTES % (AUTO) 6.3 % (1.7-9.3); NEUTROPHILS # (AUTO) 13.1 K/uL (1.8-7.7); NEUTROPHILS % (AUTO) 86.6 % (42.2-75.2); PLATELET COUNT (AUTO) 349 K/uL (140-450); RED BLOOD CELL COUNT(AUTO) 2.74 MIL/uL (4.20-6.10); RED CELL DISTRIBUTION WIDTH 14.5 % (11.6-13.7); WHITE BLOOD COUNT (AUTO) 15.1 K/uL (4.8-10.8)
--- NOTE | 2021-05-01 15:43 | NUR ---
Dr. Villanueva is evaluating patient at bedside
[2021-05-01 15:56] LABS: ANION GAP 16.5 (8-16); CARBON DIOXIDE 24.8 mmol/L (21-32); CREATININE 1.2 mg/dL (0.6-1.3); POTASSIUM 4.3 mmol/L (3.5-5.1); TOTAL BILIRUBIN 0.9 mg/dL (0.0-1.0)
--- NOTE | 2021-05-01 16:38 | NUR ---
pt taken to ct via w/c
--- NOTE | 2021-05-01 16:52 | NUR ---
PT RETURNED TO BED [address] VIA W/C
[2021-05-01] MEDS ORDERED: PIPERACILLIN/TAZOBACTAM 3.375 GM in DEXTROSE 5% 50 ML IV SCH (17:30)
--- NOTE | 2021-05-01 18:30 | NUR ---
patient in bed sitting, stable at this time
--- NOTE | 2021-05-01 18:54 | NUR ---
Dr. Villanueva at bedside assessing patient
--- NOTE | 2021-05-01 19:21 | NUR ---
Pt report given to Karissa. Transfer of care at this time.
[2021-05-01] MEDS ORDERED: PIPERACILLIN/TAZOBACTAM 3.375 GM VIAL IV ONE (19:29)
[2021-05-01] MEDS ORDERED: KCL 20 MEQ/WATER INJ PREMIX 200 ML IV PRN (19:35)
[2021-05-01] MEDS ORDERED: ACETAMINOPHEN 325 MG TAB PO PRN (19:35)
[2021-05-01] MEDS ORDERED: POTASSIUM CHLORIDE 10 MEQ TABER PO PRN (19:35)
[2021-05-01] MEDS ORDERED: MORPHINE SULFATE 4 MG/ML SYR IVP PRN (19:35)
[2021-05-01] MEDS ORDERED: MAGNESIUM OXIDE 400 MG TAB PO PRN (19:35)
[2021-05-01] MEDS ORDERED: DEXTROSE 50% 50 ML SYR IVP PRN (19:40)
--- NOTE | 2021-05-01 19:46 | NUR ---
CULTURES GIVEN TO ENVIRONMENTAL SERVICE AIDE
--- NOTE | 2021-05-01 20:21 | NUR ---
WALKED RITESH OVER TO LAB
[2021-05-01] MEDS: HYDROcodone/APAP 5/325 MG 1 TAB TAB PO PRN (20:24)
[2021-05-01] MEDS: PIPERACILLIN/TAZOBACTAM 2.25 GM in DEXTROSE 5% 50 ML IV SCH (21:00)
[2021-05-01] MEDS ORDERED: PIPERACILLIN/TAZOBACTAM 2.25 GM VIAL IV ONE (21:38)
[2021-05-01] MEDS: BLOOD GLUCOSE MONITORING 1 DEV DEV FS SCH (21:57)
[2021-05-01] MEDS: INSULIN LISPRO SLIDING SCALE 100 UNITS/ML VIAL SUBQ PRN (22:13)
--- NOTE | 2021-05-01 23:55 | NUR ---
Patient will be admitted to care of DR. BENITEZ. Admited to MED/SURG. Will go to room 104 B. Belongings list completed. Report to TORSTEN
[2021-05-02] VITALS: BP 135/71
--- NOTE | 2021-05-02 00:33 | NUR ---
ADMITTED PATIENT FROM ER DEPARTMENT VIA WHEELCHAIR WITH TWO STAFF WITH CHIEF COMPLAINT OF ABDOMINAL DRAIN PULLED OUT. ADMITTING DIAGNOSIS OF NECROTIZING PANCREATITIS. PATIENT IS 45 y/o MALE, COOPERATIVE. PATIENT IS AWAKE, ALERT AND VERBALLY RESPONSIVE. AOX4, AMBULATORY. AFEBRILE. ABLE TO VERBALIZED NEEDS. BREATHING EVEN AND UNLABORED WITH NO SOB NOTED. NOT IN DISTRESS. DENIES ANY PAIN OR DISCOMFORT AT THIS TIME. HEAD TO TOE ASSESSMENT BY KARLIE BRADY COMPLETED. INITIAL V/S TAKEN AND WNL. IV SITE ON RIGHT AC 20G. PATIENT HAS MULTIPLE ABDOMINAL SURGICAL INCISIONS. ABDOMINAL DRAIN SITE ON LEFT UPPER QUADRANT. PATIENT IS ORIENTED TO CALL LIGHT, BED, PHONE, TELEVISION, BATHROOM, VISITING HOURS, ID BRACELET ON. WHITE BOARD COMMUNICATION UPDATED. ALL SAFETY MEASURES IN PLACE. CALL LIGHT WITHIN REACH. WILL CONTINUE WITH CURRENT PLAN OF CARE.
--- NOTE | 2021-05-02 01:00 | NUR ---
REVIEWED PLAN OF CARE WITH TORSTEN KILGORE LVN AND WILL CONTINUE WITH PLAN OF CARE.
--- NOTE | 2021-05-02 02:35 | NUR ---
PATIENT SOUNDS ASLEEP. BREATHING EVEN AND UNLABORED WITH NO SOB NOTED. CALL LIGHT WITHIN REACH. WILL CONTINUE TO MONITOR.
--- NOTE | 2021-05-02 03:35 | NUR ---
PROVIDED PATIENT WARM BLANKET. ALL SAFETY MEASURES IN PLACE. CALL LIGHT WITHIN REACH. WILL CONTINUE TO MONITOR.
[2021-05-02 04:00] VITALS: BP 136/83
[2021-05-02] MEDS ORDERED: PIPERACILLIN/TAZOBACTAM 2.25 GM VIAL IV ONE (05:00)
[2021-05-02] MEDS: PIPERACILLIN/TAZOBACTAM 2.25 GM in DEXTROSE 5% 50 ML IV SCH ×3 (05:09→21:00)
[2021-05-02] MEDS: HYDROcodone/APAP 5/325 MG 1 TAB TAB PO PRN ×3 (05:31→21:30)
--- NOTE | 2021-05-02 05:37 | NUR ---
ANSWERED PATIENT CALL LIGHT. PATIENT REQUESTING PAIN MEDICATION. PAIN 08/16. ADMINISTERED PAIN MEDICATION PER MD ORDER. TOLERATED WELL. NO ASE NOTED. CALL LIGHT WITHIN REACH. WILL CONTINUE TO MONITOR.
[2021-05-02] MEDS: BLOOD GLUCOSE MONITORING 1 DEV DEV FS SCH ×4 (06:37→20:29)
[2021-05-02] MEDS: INSULIN LISPRO SLIDING SCALE 100 UNITS/ML VIAL SUBQ PRN ×4 (06:38→20:31)
[2021-05-02 07:13] LABS: BASOPHILS % (AUTO) 0.3 % (0.0-2.0); EOSINOPHILS % (AUTO) 0.2 % (0.0-4.0); HEMATOCRIT 25.9 % (36-52); HEMOGLOBIN 8.6 g/dL (12.0-18.0); LYMPHOCYTES % (AUTO) 6.9 % (20.5-51.1); MEAN CORPUSCULAR HEMOGLOBIN 31 pg (27-31); MEAN CORPUSCULAR HGB CONC 33 g/dL (33-37); MEAN CORPUSCULAR VOLUME 93.9 fL (80-94); MONOCYTES # (AUTO) 0.8 K/uL (0.8-1.0); MONOCYTES % (AUTO) 5.7 % (1.7-9.3); NEUTROPHILS # (AUTO) 12.1 K/uL (1.8-7.7); NEUTROPHILS % (AUTO) 86.9 % (42.2-75.2); PLATELET COUNT (AUTO) 364 K/uL (140-450); RED BLOOD CELL COUNT(AUTO) 2.75 MIL/uL (4.20-6.10); RED CELL DISTRIBUTION WIDTH 14.6 % (11.6-13.7)
--- NOTE | 2021-05-02 07:22 | NUR ---
ENDORSED PATIENT REPORT TO AM SHIFT NURSE FOR CONTINUITY OF CARE. PATIENT IS STABLE.
--- NOTE | 2021-05-02 07:23 | NUR ---
RECIVED REPORT FROM PM SHIFT NURSE FOR CONTINUITY OF CARE. PT. ALERT, ORIENTED. STABLE ON ROOM AIR. BREATHINGS EVEN AND UNLABORED. NO ACUTE DISTRESS NOTED. ALL SAFETY MEASURES IN PLACE. WILL CONTINUE TO MONITOR THE PT.
[2021-05-02 07:29] LABS: ANION GAP 15.6 (8-16); CARBON DIOXIDE 25.4 mmol/L (21-32); CREATININE 1.1 mg/dL (0.6-1.3); MAGNESIUM 1.5 mg/dL (1.8-2.4)
[2021-05-02 08:00] VITALS: BP 124/76
[2021-05-02] MEDS: ENOXAPARIN 40 MG/0.4 ML SYR SUBQ SCH (08:39)
[2021-05-02] MEDS: MAG SULF 2000 MG/WATER PREMIX 50 ML IV PRN (08:44)
--- NOTE | 2021-05-02 09:33 | NUR ---
PATIENT HAS BEEN SCREENED AND CATEGORIZED LOW NUTRITION RISK. PATIENT WILL BE SEEN WITHIN 7 DAYS OF ADMISSION. 05/02/21-05/08/[address]
--- NOTE | 2021-05-02 09:58 | NUR ---
PT. ALERT, AWAKE SITTING IN THE CHAIR. STABLE ON ROOM AIR. NO DISTRESS NOTED. CALL LIGHT WITHIN REAH. WILL CONTINUE TO MONITOR THE PT.
--- NOTE | 2021-05-02 11:06 | NUR ---
DC PLANNIN YRS OLD MALE PATIENT WAS ADMITTED FROM HOME WITH A DX OF NECROTIZING PANCREATITIS. PT HAD LAP SYEDA ON 04/12 AND WAS RECENTLY DC FROM THE HOSPITAL WITH PIG TAIL DRAINAGE AND PER PATIENT IT WAS ACCIDENTALLY REMOVED. [facility] WAS ACCEPTED PATIENT PRIOR TO ADMISSION. CT ABD SHOWED GAS AND SOFT TISSUE AROUND THE PANCREAS CONCERNING FOR PROGRESSION OF THE NECROTIZING PANCREATIS. ADMINISTER IVF, IV ABX ZOSYN AND PAIN MEDS. CONSULTED WITH DR TOVAR SURGEON. DC PLAN TO GO HOME WITH HOME HEALTH
--- NOTE | 2021-05-02 12:18 | NUR ---
BS CHECKED [id number]. ADMINISTERED INSULIN ACCORDING TO SLIDING SCAL. PT. JAELYN WELL.PT. MG LEVEL WAS 1.5 . ADMINISTERED MAGNESIUM SULFATE 2GM IVPB X1 PRN ORDER. CONTINUE MONITORING THE PT.
--- NOTE | 2021-05-02 14:07 | NUR ---
MADE ROUND, PT. SITTING IN THE CHAIR. NO C/O PAIN OR DISCOMFORT. BREATHINGS EVEN AND UNLABORED. CALL LIGHT WITHIN REACH. WILL CONTINUE TO MONITOR THE PT.
[2021-05-02 16:00] VITALS: BP 130/79
--- NOTE | 2021-05-02 16:51 | NUR ---
BLOOD SUGAR CHECKED, WAS 247. INSULIN GIVEN ACCORDING TO SLIDING SCALE. PT. STABLE. NOT IN DISTRESS. SAFETY MEASURES IN PLACE, WILL CONTINUE TO MONITOR THE PT.
--- NOTE | 2021-05-02 17:17 | NUR ---
ANSWERED CALL LIGHT. PT. C/O PAIN IN ABDOMEN,08/16. MEDICATED WITH PAIN MED. NORCO. WILL MONITOR AND REASSESS THE PT. FOR EFFECTIVENESS.
--- NOTE | 2021-05-02 19:36 | NUR ---
REPORT GIVEN TO PM SHIFT NURSE FOR CONTINUITY OF CARE. PT.STABLE
--- NOTE | 2021-05-02 19:37 | NUR ---
RECEIVED PATIENT REPORT FROM AM SHIFT NURSE FOR CONTINUITY OF CARE. PATIENT IN BED AWAKE, ALERT AND VERBALLY RESPONSIVE. ON BEDSIDE. BREATHING EVEN AND UNLABORED WITH NO SOB NOTED. DENIES ANY PAIN AT THIS TIME. PATIENT VERBALIZED THAT HE IS SO UPSET THE WHOLE DAY BECAUSE NO ONE EXPLAINED TO HIM WHAT'S THE UPDATE OF HIS STAY. ALL SAFETY MEASURES IN PLACE. CALL LIGHT WITHIN REACH. WILL CONTINUE WITH CURRENT PLAN OF CARE.
[2021-05-02 20:00] VITALS: BP 129/79
--- NOTE | 2021-05-02 20:00 | NUR ---
Patient's Plan of Care was discussed and reviewed with GEORGE MCKINLEY.
--- NOTE | 2021-05-02 21:00 | NUR ---
SCHEDULED ANTIBIOTICS GIVEN. PT TOLERATED WELL.
--- NOTE | 2021-05-02 21:30 | NUR ---
ADMINISTERED SCHEDULE MEDICATIONS PER MD ORDER. TOLERATED WELL. NO ASE NOTED. ALL SAFETY MEASURES MAINTAINED. CALL LIGHT WITHIN REACH. WILL CONTINUE TO MONITOR.
--- NOTE | 2021-05-02 23:55 | NUR ---
CHECKED ON PATIENT. ASLEEP WITH HOB SLIGHTLY ELEVATED. BREATHING EVEN AND UNLABORED. NO SOB NOTED. ALL SAFETY MEASURES MAINTAINED. CALL LIGHT WITHIN REACH. WILL CONTINUE TO MONITOR.
--- NOTE | 2021-05-03 01:55 | NUR ---
ROUNDED ON PATIENT. PT ASLEEP. BREATHING EVEN AND UNLABORED. NO SOB NOTED. ALL SAFETY MEASURES MAINTAINED. CALL LIGHT WITHIN REACH. WILL CONTINUE TO MONITOR.
--- NOTE | 2021-05-03 03:55 | NUR ---
ROUNDED ON PATIENT. PT ASLEEP. RESPIRATIONS EVEN AND UNLABORED. NO SOB NOTED. CALL LIGHT WITHIN REACH. WILL CONTINUE TO MONITOR.
[2021-05-03 04:00] VITALS: BP 137/78
[2021-05-03] MEDS: PIPERACILLIN/TAZOBACTAM 2.25 GM in DEXTROSE 5% 50 ML IV SCH ×2 (05:20→12:30)
--- NOTE | 2021-05-03 05:20 | NUR ---
SCHEDULED ANTIBIOTICS GIVEN. PT TOLERATED WELL.
[2021-05-03] MEDS: BLOOD GLUCOSE MONITORING 1 DEV DEV FS SCH ×2 (06:46→11:45)
[2021-05-03] MEDS: INSULIN LISPRO SLIDING SCALE 100 UNITS/ML VIAL SUBQ PRN ×2 (06:47→11:50)
--- NOTE | 2021-05-03 07:10 | NUR ---
RECEIVED REPORT FROM WIRE INSERTER NURSE FOR CONTINUITY OF CARE. PT ASLEEP NO DISTRESS NOTED. IV SITE ON RIGHT AC HILARIA 20 SALINE LOCK. ALL SAFETY MEASURE IN PLACE.
[2021-05-03 07:21] LABS: BASOPHILS % (AUTO) 0.3 % (0.0-2.0); EOSINOPHILS % (AUTO) 0.2 % (0.0-4.0); HEMATOCRIT 23.8 % (36-52); LYMPHOCYTES # (AUTO) 0.6 K/uL (2.0-11.5); LYMPHOCYTES % (AUTO) 5.1 % (20.5-51.1); MEAN CORPUSCULAR HEMOGLOBIN 31 pg (27-31); MEAN CORPUSCULAR HGB CONC 34 g/dL (33-37); MEAN CORPUSCULAR VOLUME 93.2 fL (80-94); MONOCYTES # (AUTO) 0.7 K/uL (0.8-1.0); MONOCYTES % (AUTO) 5.7 % (1.7-9.3); NEUTROPHILS # (AUTO) 10.7 K/uL (1.8-7.7); NEUTROPHILS % (AUTO) 88.7 % (42.2-75.2); PLATELET COUNT (AUTO) 337 K/uL (140-450); RED BLOOD CELL COUNT(AUTO) 2.56 MIL/uL (4.20-6.10); RED CELL DISTRIBUTION WIDTH 14.6 % (11.6-13.7)
--- NOTE | 2021-05-03 07:26 | NUR ---
ENDORSED PATIENT REPORT TO AM SHIFT NURSE FOR CONTINUITY OF CARE. PATIENT STABLE.
[2021-05-03 08:00] VITALS: BP 144/82
--- NOTE | 2021-05-03 08:00 | NUR ---
Patient's Plan of Care was discussed and reviewed with GEORGE: GEORGE BRAVO
[2021-05-03 08:01] LABS: ALBUMIN 1.8 g/dL (3.4-5.0); ANION GAP 13.2 (8-16); CARBON DIOXIDE 25.7 mmol/L (21-32); MAGNESIUM 1.4 mg/dL (1.8-2.4); POTASSIUM 3.9 mmol/L (3.5-5.1)
[2021-05-03] MEDS: ENOXAPARIN 40 MG/0.4 ML SYR SUBQ SCH ×2 (08:26→08:29)
--- NOTE | 2021-05-03 08:30 | NUR ---
PATIENT REFUSED LOVENOX STATED I DON'T NEED IT EVEN WITH EXPLANATION THE RISK AND BENEFIT.PATIENT VERBALIZED HIS CONCERN TOWARD DR. TOVAR THAT ITS VERY IMPORTANT TO SEE HIM TODAY OR ELSE HIS GOING OUT FROM THIS HOSPITAL. LEFT MESSAGE TO DR. TOVAR.
[2021-05-03] MEDS: MAG SULF 2000 MG/WATER PREMIX 50 ML IV PRN (09:28)
--- NOTE | 2021-05-03 09:40 | NUR ---
RN GAVE MAGNESIUM VIA IVPB FOR MAG 1.5 NO ADVERSE REACTION NOTED.
--- NOTE | 2021-05-03 11:45 | NUR ---
DR. DAVIS AT BED SIDE INFORM THAT PATIENT WILL BE DISCHARGE TODAY.
--- NOTE | 2021-05-03 11:51 | NUR ---
PATIENT SITTING ON CHAIR ON STABLE CONDITION. GIVEN INSULIN COVERAGE FOR BLOOD SUGAR 322. CALL LIGHT WITH IN EASY REACH.
[2021-05-03 12:00] VITALS: BP 127/78
--- NOTE | 2021-05-03 12:38 | NUR ---
RN GAVE IVPB ANTIBIOTIC AT 1230 TOLERATED WELL NO ADVERSE REACTION NOTED.
--- NOTE | 2021-05-03 12:41 | NUR ---
INFORM PATIENT OF DISCHARGE ORDER NAD DR. DAVIS AT BED SIDE REMOVING CARRIE ON ABDOMINAL SURGICAL SITE.
[2021-05-03 13:55] VITALS: BP 127/78
--- NOTE | 2021-05-03 14:25 | NUR ---
PATIENT ALERT ABLE TO MAKE NEEDS KNOWN. ON STABLE CONDITION. DISCHARGE PACKET GIVEN WITH INSTRUCTION AND VERBALIZED UNDERSTANDING. ALL BELONGING TAKEN AND REMOVE IV WITH CATHETER INTACT AND NAME BAND REMOVED. ACCOMPANIED TO WALKED TILL THEIR PRIVATE VEHICLE.
== END 2021-05-03 14:20 | disposition home or self-care (01) | DRG 282 ==
LOC: MED 15:00 → MMU 19:37 → MTU 21:19
PROVIDERS: ADMIT Internal Medicine; ATTEND Internal Medicine
DX: K85.91 Acute pancreatitis with uninfected necrosis, unspecified (principal); R65.11 Systemic inflammatory response syndrome (SIRS) of non-infectious origin with acute organ dysfunction; E11.00 Type 2 diabetes mellitus with hyperosmolarity without nonketotic hyperglycemic-hyperosmolar coma (NKHHC); E11.65 Type 2 diabetes mellitus with hyperglycemia; Z20.822 Contact with and (suspected) exposure to COVID-19; I10 Essential (primary) hypertension; E44.1 Mild protein-calorie malnutrition; Z68.35 Body mass index [BMI] 35.0-35.9, adult; Z79.2 Long term (current) use of antibiotics; Z79.84 Long term (current) use of oral hypoglycemic drugs; Z79.899 Other long term (current) drug therapy
CPT/HCPCS: 36415; 80053; 82948; 83690; 83735; 85025; 87040; 87081; 96372; 99285; J1650; J1815; J2543; J3475; J7060